=== PATIENT | male | born 1955 | race Caucasian/White ===

== ENCOUNTER 2017-11-02 21:40 | Inpatient (IN) | payer MEDICARE, OTHER ==
--- NOTE | 2017-11-02 22:19 | ED ---
General Adult HPI - General Source: patient, RN notes reviewed, Caregiver Mode of arrival: ambulatory Limitations: no limitations <Alberto Carrillo - Last Filed: 11/02/17 23:22> <Dwaine Downing - Last Filed: 11/02/17 23:40> - General Chief complaint: Extremity Problem,Nontraumatic Stated complaint: swollen ankle/leg Time Seen by Provider: 11/02/17 21:59 - History of Present Illness Initial comments: Patient 62-year-old male significant past medical history for developmental delay, presenting with caregiver who provides the history. He states that he was called by a worker that was going out to his house about some swelling to the right leg. Unsure when this started as a bleed just recently in the last day or 2. Patient denies any pain or symptoms. His of swelling and some redness to the right lower extremity. Patient has low-grade fever here in emergency room. Patient denies any complaints or symptoms. He denies any fever. Denies any nausea, vomiting, diarrhea. Denies any pain. (Alberto Carrillo ) - Related Data Home Medications Medication Instructions Recorded Confirmed Dicyclomine HCl 20 mg PO QID 11/02/17 11/02/17 Ergocalciferol (Vitamin D2) 50,000 unit PO WE 11/02/17 11/02/17 [Vitamin D2] Loperamide [Imodium] 4 mg PO QID 11/02/17 11/02/17 Loratadine 10 mg PO DAILY 11/02/17 11/02/17 Multivitamins, Thera [Multivitamin 1 tab PO DAILY 11/02/17 11/02/17 (formulary)] Phenytoin Sodium Extended 100 mg PO QID 11/02/17 11/02/17 [Dilantin] Pravastatin Sodium [Pravachol] 20 mg PO DAILY 11/02/17 11/02/17 Venlafaxine HCl ER [Effexor Xr] 75 mg PO DAILY 11/02/17 11/02/17 Vitamin E (Dl,Tocopheryl Acet) 800 unit PO DAILY 11/02/17 11/02/17 [Vitamin E] Allergies Allergy/AdvReac Type Severity Reaction Status Date / Time No Known Allergies Allergy Verified 11/02/17 22:20 Review of Systems ROS Other: All systems not noted in ROS Statement are negative. <Alberto Carrillo - Last Filed: 11/02/17 23:22> ROS Other: All systems not noted in ROS Statement are negative. <Dwaine Downing - Last Filed: 11/02/17 23:40> ROS Statement: Those systems with pertinent positive or pertinent negative responses have been documented in the HPI. Past Medical History Past Medical History: Seizure Disorder Additional Past Medical History / Comment(s): developmental delay History of Any Multi-Drug Resistant Organisms: None Reported Past Surgical History: No Surgical Hx Reported Past Psychological History: No Psychological Hx Reported Smoking Status: Never smoker Past Alcohol Use History: None Reported Past Drug Use History: None Reported <Alberto Carrillo - Last Filed: 11/02/17 23:22> General Exam Limitations: no limitations <Alberto Carrillo - Last Filed: 11/02/17 23:22> <Dwaine Downing - Last Filed: 11/02/17 23:40> - General Exam Comments Initial Comments: General: The patient is awake and alert, in no distress, and does not appear acutely ill. Eye: Pupils are equal, round and reactive to light, extra-ocular movements are intact. No nystagmus. There is normal conjunctiva bilaterally. No signs of icterus. Ears, nose, mouth and throat: There are moist mucous membranes and no oral lesions. Neck: The neck is supple, there is no tenderness or JVD. Cardiovascular: There is a regular rate and rhythm. No murmur, rub or gallop is appreciated. Respiratory: Lungs are clear to auscultation, respirations are non-labored, breath sounds are equal. No wheezes, stridor, rales, or rhonchi. Musculoskeletal: Normal ROM, no tenderness. Strength 5/5. Sensation intact. Pulses equal bilaterally 2+. Neurological: A&O x 3. CN II-XII intact, There are no obvious motor or sensory deficits. Coordination appears grossly intact. Speech is normal. Skin: Patient does have redness swelling to the right lower extremity. There is 1+ pitting. There is some lymphangitic streaking coming from the medial aspect of the right foot up the anterior right allison. Psychiatric: Cooperative, appropriate mood & affect, normal judgment. (Alberto Carrillo) Course <Alberto Carrillo - Last Filed: 11/02/17 23:22> <Dwaine Downing - Last Filed: 11/02/17 23:40> Vital Signs 11/02/17 21:53 Temperature 100.2 F H Pulse Rate 85 Respiratory 18 Rate Blood Pressure 137/65 O2 Sat by Pulse 100 Oximetry - Reevaluation(s) Reevaluation #1: 11/02/17 23:39 PA supervision did personally evaluate this patient with a [id number] evaluation and did discuss the findings with the patient's family member who was present. He does demonstrate evidence of cellulitis of the right lower extremity with edema and increased local erythema especially below the knee no lymphangitis. Mild tenderness palpation. Ultrasound was negative for DVT. The exam is consistent with a lower sternal he cellulitis. The patient's living situation will be admitted and placed on IV antibiotics are discussed the case with Dr. Eller. (Dwaine Downing) Medical Decision Making <Alberto Carrillo - Last Filed: 11/02/17 23:22> - Lab Data Result diagrams: 11/02/17 23:15 <Dwaine Downing - Last Filed: 11/02/17 23:40> - Medical Decision Making Patient started on antibiotics of Zosyn, vancomycin here the emergency room. Admitted to the hospital for further IV antibiotics and evaluation. (Alberto Carrillo) - Lab Data Lab Results 11/02/17 11/02/17 Range/Units 23:15 23:15 WBC 6.1 (3.8-10.6) k/uL RBC 4.27 L (4.30-5.90) m/uL Hgb 12.0 L (13.0-17.5) gm/dL Hct 36.2 L (39.0-53.0) % MCV 84.8 (80.0-100.0) fL MCH 28.2 (25.0-35.0) pg MCHC 33.3 (31.0-37.0) g/dL RDW 13.1 (11.5-15.5) % Plt Count 181 (150-450) k/uL Neutrophils % 57 % Lymphocytes % 28 % Monocytes % 9 % Eosinophils % 3 % Basophils % 1 % Neutrophils # 3.5 (1.3-7.7) k/uL Lymphocytes # 1.7 (1.0-4.8) k/uL Monocytes # 0.5 (0-1.0) k/uL Eosinophils # 0.2 (0-0.7) k/uL Basophils # 0.0 (0-0.2) k/uL Plasma Lactic Acid Andrew 0.6 L (0.7-2.0) mmol/L Disposition Time of Disposition: 23:24 <Alberto Carrillo - Last Filed: 11/02/17 23:22> <Dwaine Downing - Last Filed: 11/02/17 23:40> Clinical Impression: Cellulitis Disposition: ADMITTED IP TO THIS HOSP Condition: Stable Referrals: Aixa Eller MD [Primary Care Provider] - 1-2 days
--- NOTE | 2017-11-02 22:49 | US ---
EXAMINATION TYPE: US venous doppler duplex LE RT DATE OF EXAM: 11/02/2017 10:44 PM COMPARISON: NONE CLINICAL HISTORY: Pain. Right leg edema and redness SIDE PERFORMED: Right TECHNIQUE: The lower extremity deep venous system is examined utilizing real time linear array sonog moon with graded compression, doppler sonography and color-flow sonography. VESSELS IMAGED: External Iliac Vein (EIV) Common Femoral Vein Deep Femoral Vein Greater Saphenous Vein * Femoral Vein Popliteal Vein Small Saphenous Vein * Proximal Calf Veins (* superficial vessels) Right Leg: Negative for DVT No evidence of DVT right leg. IMPRESSION: Normal exam. No evidence of deep venous thrombosis in the right leg.
[2017-11-02] MEDS ORDERED: SODIUM CHLORIDE 0.9% 1,000 ML IV STA (23:03)
[2017-11-02] MEDS ORDERED: VANCOMYCIN IV PER PHARMACY 1 EACH MISC MISCELLANE PRN (23:03)
[2017-11-02] MEDS ORDERED: VANCOMYCIN 1,500 MG in SODIUM CHLORIDE 0.9% 250 ML IVPB STA (23:03)
[2017-11-02] MEDS ORDERED: PIPERACILLIN-TAZOBACTAM 3.375 GM in DEXTROSE/WATER 1 50ML.BAG IVPB STA (23:03)
[2017-11-02 23:23] LABS: Basophils % (A) 1 %; Eosinophils # (A) 0.2 k/uL (0-0.7); Eosinophils % (A) 3 %; HCT 36.2 % (39.0-53.0); Lymphocytes # (A) 1.7 k/uL (1.0-4.8); Lymphocytes % (A) 28 %; MCH 28.2 pg (25.0-35.0); MCHC 33.3 g/dL (31.0-37.0); MCV 84.8 fL (80.0-100.0); Monocytes # (A) 0.5 k/uL (0-1.0); Monocytes % (A) 9 %; Neutrophils # (A) 3.5 k/uL (1.3-7.7); Neutrophils % (A) 57 %; Platelet Count 181 k/uL (150-450); RBC 4.27 m/uL (4.30-5.90); RDW 13.1 % (11.5-15.5); WBC 6.1 k/uL (3.8-10.6)
[2017-11-02] MEDS ORDERED: NALOXONE 0.4 MG/ML 1 ML VIAL IV PRN (23:24)
[2017-11-02] MEDS ORDERED: ONDANSETRON 4 MG/2 ML VIAL IVP PRN (23:24)
[2017-11-02] MEDS ORDERED: HYDROmorphone 2 MG/ML 1 ML SYRINGE IVP PRN (23:24)
[2017-11-02] MEDS ORDERED: LORazepam 2 MG/ML INJ IV PRN (23:24)
[2017-11-02 23:54] LABS: ALT 51 U/L (21-72); AST 34 U/L (17-59); Albumin 3.5 g/dL (3.5-5.0); Alkaline Phosphatase 60 U/L (38-126); Anion Gap 9 mmol/L; Blood Urea Nitrogen 21 mg/dL (9-20); Calcium 8.9 mg/dL (8.4-10.2); Carbon Dioxide 30 mmol/L (22-30); Chloride 102 mmol/L (98-107); Glucose 96 mg/dL (74-99); Potassium 3.8 mmol/L (3.5-5.1); Sodium 141 mmol/L (137-145); Total Bilirubin 0.3 mg/dL (0.2-1.3); Total Protein 6.1 g/dL (6.3-8.2)
[2017-11-03 00:59] VITALS: BMI 27.8
[2017-11-03] MEDS ORDERED: VANCOMYCIN 1,500 MG in SODIUM CHLORIDE 0.9% 250 ML IVPB ONE (04:00)
[2017-11-03 07:59] LABS: ALT 48 U/L (21-72); AST 28 U/L (17-59); Alkaline Phosphatase 58 U/L (38-126); Anion Gap 7 mmol/L; Blood Urea Nitrogen 15 mg/dL (9-20); Calcium 8.6 mg/dL (8.4-10.2); Carbon Dioxide 27 mmol/L (22-30); Chloride 107 mmol/L (98-107); Glucose 93 mg/dL (74-99); Potassium 4.2 mmol/L (3.5-5.1); Sodium 141 mmol/L (137-145); Total Bilirubin 0.3 mg/dL (0.2-1.3); Total Protein 5.5 g/dL (6.3-8.2)
[2017-11-03] MEDS ORDERED: PIPERACILLIN-TAZOBACTAM 3.375 GM in DEXTROSE/WATER 1 50ML.BAG IVPB SCH (08:00)
--- NOTE | 2017-11-03 11:22 | P.HPIM ---
History of Present Illness H&P Date: 11/03/17 Chief Complaint: Right lower extremity swelling and erythema Sergey Bowden is a 62-year-old male well-known to my practice with known history of medical debility who was noticed by his caregiver to have swelling and erythema in his right lower extremity extending from his foot up to his knee he was brought in to [facility] emergency room he was evaluated by Dr. Carrillo he underwent Doppler of his right lower extremity which was negative for DVT, he was started on IV antibiotic Zosyn and vancomycin and was admitted to medical floor for further evaluation and treatment, blood culture 1 was done in the emergency room and sent to the lab results are still pending, there is no open ulcer on his right lower extremity. Patient has evidence of onychomycosis in all [address] Green for toenail current every 2 month. His past medical history is significant for developmental delay with moderate mental debility patient requires 24-hour care, history of seizure disorder, history of depression and history of hyperlipidemia, patient has been stable as outpatient. On review of system patient has very low verbal output he is denying any pain or discomfort in his right lower extremity is denying any other symptoms at this time. Past Medical History Past Medical History: Seizure Disorder Additional Past Medical History / Comment(s): developmental delay, cellulitis History of Any Multi-Drug Resistant Organisms: None Reported Past Surgical History: No Surgical Hx Reported Past Anesthesia/Blood Transfusion Reactions: No Reported Reaction Past Psychological History: No Psychological Hx Reported Smoking Status: Never smoker Past Alcohol Use History: None Reported Past Drug Use History: None Reported - Past Family History Father Family Medical History: Unable to Obtain Medications and Allergies Home Medications Medication Instructions Recorded Confirmed Type Dicyclomine HCl 20 mg PO QID 11/02/17 11/02/17 History Ergocalciferol (Vitamin D2) 50,000 unit PO WE 11/02/17 11/02/17 History [Vitamin D2] Loperamide [Imodium] 4 mg PO QID 11/02/17 11/02/17 History Loratadine 10 mg PO DAILY 11/02/17 11/02/17 History Multivitamins, Thera [Multivitamin 1 tab PO DAILY 11/02/17 11/02/17 History (formulary)] Phenytoin Sodium Extended 100 mg PO QID 11/02/17 11/02/17 History [Dilantin] Pravastatin Sodium [Pravachol] 20 mg PO DAILY 11/02/17 11/02/17 History Venlafaxine HCl ER [Effexor Xr] 75 mg PO DAILY 11/02/17 11/02/17 History Vitamin E (Dl,Tocopheryl Acet) 800 unit PO DAILY 11/02/17 11/02/17 History [Vitamin E] Allergies Allergy/AdvReac Type Severity Reaction Status Date / Time No Known Allergies Allergy Verified 11/02/17 22:20 Physical Exam Vitals: Vital Signs Temp Pulse Pulse Resp BP BP Pulse Ox 11/03/17 07:00 98.1 F 75 18 126/71 91 L 11/03/17 01:30 97.9 F 76 16 144/77 93 L 11/02/17 23:51 79 16 121/65 96 11/02/17 21:53 100.2 F H 85 18 137/65 100 Intake and Output 11/02/17 11/03/17 11/03/17 22:59 06:59 14:59 Intake Total 300 Balance 300 Intake: IV 300 Piperacillin-Tazobactam 3 50 .375 gm In Dextrose/Water 1 50ml.bag @ 12.5 mls/hr IVPB Q8HR [facility] Rx#: [id number] Vancomycin 1,500 mg In 250 Sodium Chloride 0.9% 250 ml @ 125 mls/hr IVPB ONCE ONE Rx#:[id number] Other: Voiding Method Toilet # Voids 1 Weight 90.718 kg 90.718 kg In general patient is alert and responsive in no apparent distress HEENT head normocephalic and atraumatic Neck is supple no JVD no goiter no lymphadenopathy Chest exam reveals a few scattered rhonchi no wheezing Cardiac exam reveals regular heart sounds no gallops no murmurs Abdomen is soft nontender no organomegaly with normal bowel sounds Extremity exam reveals 2+ edema in the right lower extremity as compared to the left with erythema extending from the foot to just below the knee there is some induration in the lower pretibial area with mild tenderness with palpation Neurological examination reveals no gross focal deficit Results CBC & Chem 7: 11/02/17 23:15 11/03/17 07:07 Labs: Abnormal Lab Results - Last 24 Hours (Table) 11/02/17 11/02/17 11/02/17 Range/Units 23:15 23:15 23:15 RBC 4.27 L (4.30-5.90) m/uL Hgb 12.0 L (13.0-17.5) gm/dL Hct 36.2 L (39.0-53.0) % BUN 21 H (9-20) mg/dL Plasma Lactic Acid Andrew 0.6 L (0.7-2.0) mmol/L Total Protein 6.1 L (6.3-8.2) g/dL Albumin (3.5-5.0) g/dL 11/03/17 Range/Units 07:07 RBC (4.30-5.90) m/uL Hgb (13.0-17.5) gm/dL Hct (39.0-53.0) % BUN (9-20) mg/dL Plasma Lactic Acid Andrew (0.7-2.0) mmol/L Total Protein 5.5 L (6.3-8.2) g/dL Albumin 3.0 L (3.5-5.0) g/dL Thrombosis Risk Factor Assmnt - Choose All That Apply Any of the Below Risk Factors Present?: Yes Each Factor Represents 1 point: Obesity (BMI >25), Swollen legs (current) Each Risk Factor Represents 2 Points: Age 61-74 years Thrombosis Risk Factor Assessment Total Risk Factor Score: 4 Thrombosis Risk Factor Assessment Level: Moderate Risk Assessment and Plan Plan: #1 right lower extremity cellulitis currently maintained on IV vancomycin and IV Zosyn Will continue was current antibiotic at this time will await blood culture results, we will consult infectious disease for follow-up #2 underlying history of developmental delay currently patient is calm he has a caregiver in his, he might need a sitter if he gets agitated. #3 underlying history of seizure disorder resume Dilantin #4 underlying history of hyperlipidemia resume Pravachol #5 underlying history of depression resume Pravachol #6 for DVT prophylaxis we will use Lovenox for GI prophylaxis we will use Pepcid Will follow in a.m.
[2017-11-03] MEDS: VENLAFAXINE HCL ER 75 MG CAP PO SCH (12:32)
[2017-11-03] MEDS: LORATADINE 10 MG TAB PO SCH (12:32)
[2017-11-03] MEDS: FAMOTIDINE 20 MG TAB PO SCH ×2 (12:32→22:14)
[2017-11-03] MEDS: PRAVASTATIN SODIUM 20 MG TAB PO SCH (12:32)
[2017-11-03] MEDS: ENOXAPARIN 40 MG/0.4 ML SYRINGE SQ SCH (12:32)
[2017-11-03] MEDS: DICYCLOMINE 20 MG TAB PO SCH ×3 (12:33→23:02)
[2017-11-03] MEDS: VITAMIN E (DL,TOCOPHERYL ACET) 400 UNIT CAP PO SCH (12:33)
[2017-11-03] MEDS: MULTIVITAMINS, THERA 1 EACH TAB PO SCH (12:33)
[2017-11-03] MEDS: PHENYTOIN SODIUM EXTENDED 100 MG CAP PO SCH ×3 (12:34→23:02)
[2017-11-03] MEDS ORDERED: LOPERAMIDE 2 MG CAP PO SCH (13:00)
[2017-11-03] MEDS ORDERED: LOPERAMIDE 2 MG CAP PO PRN (13:44)
[2017-11-03] MEDS ORDERED: VANCOMYCIN 1,500 MG in SODIUM CHLORIDE 0.9% 250 ML IVPB SCH (14:00)
[2017-11-03] MEDS ORDERED: HYDROcodone/APAP 5-325MG 1 EACH TAB PO PRN (15:57)
[2017-11-03] MEDS ORDERED: HYDROmorphone 0.5 MG/0.5 ML SYRINGE IVP PRN (16:16)
--- NOTE | 2017-11-03 16:37 | CONS ---
CONSULTATION DATE OF SERVICE: 11/03/2017. REASON FOR CONSULTATION: Right lower extremity cellulitis. HISTORY OF PRESENT ILLNESS: The patient is a 62-year-old male with past medical history significant for developmental delay has been brought into the ER at [facility] last night by the caregiver. Apparently the patient having more swelling and redness in his right leg that has been going on for about a day or 2. The patient is not a very good historian. He did complain of having pain in the right leg area. However, he was unable to quantify his pain any further. When asked specifically if he has any trauma or anything falling episodes, he says no. The patient denies having any fever and chills. Subsequently the patient has been evaluated by the ER physician. He did have lower extremity Dopplers that was negative for DVT. Has been diagnosed with cellulitis. The patient was started on Zosyn and vancomycin and admitted to hospital. Infectious disease was consulted for further recommendation regarding antibiotic therapy. Most of the information has been obtained from prior review of the chart as the patient overall is not a very good historian. REVIEW OF SYSTEMS: Could not be reliably obtained though the positive points have been mentioned in HPI. PAST MEDICAL HISTORY: Significant for developmental delay and seizure disorder. PAST SURGICAL HISTORY: No major surgeries. SOCIAL HISTORY: No smoking, drinking, drug use. FAMILY HISTORY: No pertinent findings were noticed. ALLERGIES: No known drug allergies. MEDICATION: Medications include the patient is currently on Bentyl, Lovenox, vitamin D2, Pepcid, Dilaudid, Imodium, Claritin, Ativan, Theragran, Zofran, Dilantin, Pravachol, Effexor, vancomycin pharmacy to dose and he is on Piptazobactam. EXAMINATION: Blood pressure is 126/71 with a pulse of 75, temperature of 98.1, T-max is 100.2. He is 91% on room air. General description is a middle-aged male lying in bed in no distress. No tachypnea or accessory muscle of respiration use. HEENT examination no pallor or scleral icterus. Oral mucosa membranes dry. Neck trachea central. No thyromegaly. Lungs unlabored breathing, clear to auscultation anteriorly. No wheeze or crackles. Heart S1, S2. Regular rate and rhythm. ABDOMEN: Soft, no tenderness. No guarding or rigidity. Extremities right leg with swelling and redness, slightly warm to touch with no skin breakdown. No induration or fluctuation. No evidence of athlete's foot. Neurological: The patient is awake, alert, oriented x1. Mood and affect normal. LABS: Hemoglobin is 12, white count 6.1, BUN of 15, creatinine 0.73. Electrolytes have been normal. Liver enzymes normal. Blood culture has been obtained which is currently pending. DIAGNOSTIC IMPRESSION AND PLAN: Patient with acute right lower extremity cellulitis with diffuse swelling and redness likely a streptococcal disease with no evidence of any fluctuation or purulence and no history of any antibiotic use recently with no concern for underlying gram- negative infection. PLAN: 1. Discontinue vancomycin and Zosyn. 2. Will start the patient on cefazolin 2 g q.8 hours. 3. Yusef the area on the right leg. 4. We will apply Kris wrap from just above to below the knee to keep some of the swelling down. 5. We will follow up on the clinical condition and culture to further adjust medication if needed. Thank you for this consultation. Will follow the patient with you. MMODL / IJN: [id number] / MANUEL
[2017-11-03] MEDS: ceFAZolin IN SWFI 2 GM/20 ML SYRINGE IVP SCH (17:09)
[2017-11-03 21:25] VITALS: RESP 16
[2017-11-04] MEDS: ceFAZolin IN SWFI 2 GM/20 ML SYRINGE IVP SCH ×4 (00:02→23:58)
[2017-11-04 07:32] LABS: Basophils % (A) 1 %; Eosinophils # (A) 0.2 k/uL (0-0.7); Eosinophils % (A) 3 %; HCT 35.2 % (39.0-53.0); HGB 11.2 gm/dL (13.0-17.5); Lymphocytes # (A) 1.4 k/uL (1.0-4.8); Lymphocytes % (A) 24 %; MCH 27.5 pg (25.0-35.0); MCHC 31.8 g/dL (31.0-37.0); MCV 86.4 fL (80.0-100.0); Mean Platelet Volume 9.5; Monocytes # (A) 0.4 k/uL (0-1.0); Monocytes % (A) 7 %; Neutrophils # (A) 3.7 k/uL (1.3-7.7); Neutrophils % (A) 63 %; Platelet Count 206 k/uL (150-450); RBC 4.07 m/uL (4.30-5.90); RDW 14.1 % (11.5-15.5); WBC 5.8 k/uL (3.8-10.6)
[2017-11-04 07:45] LABS: ALT 43 U/L (21-72); AST 23 U/L (17-59); Albumin 3.1 g/dL (3.5-5.0); Alkaline Phosphatase 58 U/L (38-126); Anion Gap 9 mmol/L; Blood Urea Nitrogen 9 mg/dL (9-20); Carbon Dioxide 27 mmol/L (22-30); Chloride 108 mmol/L (98-107); Glucose 94 mg/dL (74-99); Potassium 3.9 mmol/L (3.5-5.1); Sodium 144 mmol/L (137-145); Total Bilirubin 0.3 mg/dL (0.2-1.3); Total Protein 5.7 g/dL (6.3-8.2)
[2017-11-04] MEDS: FAMOTIDINE 20 MG TAB PO SCH ×2 (08:27→21:00)
[2017-11-04] MEDS: DICYCLOMINE 20 MG TAB PO SCH ×4 (08:27→21:00)
[2017-11-04] MEDS: ENOXAPARIN 40 MG/0.4 ML SYRINGE SQ SCH (08:27)
[2017-11-04] MEDS: VENLAFAXINE HCL ER 75 MG CAP PO SCH (08:28)
[2017-11-04] MEDS: PRAVASTATIN SODIUM 20 MG TAB PO SCH (08:28)
[2017-11-04] MEDS: PHENYTOIN SODIUM EXTENDED 100 MG CAP PO SCH ×4 (08:28→21:00)
[2017-11-04] MEDS: LORATADINE 10 MG TAB PO SCH (08:28)
[2017-11-04] MEDS: VITAMIN E (DL,TOCOPHERYL ACET) 400 UNIT CAP PO SCH (12:41)
[2017-11-04] MEDS: MULTIVITAMINS, THERA 1 EACH TAB PO SCH (12:41)
--- NOTE | 2017-11-04 12:57 | P.PN ---
Subjective Progress Note Date: 11/04/17 Sergey Bowden is a 62-year-old male well-known to my practice with known history of medical debility who was noticed by his caregiver to have swelling and erythema in his right lower extremity extending from his foot up to his knee he was brought in to [facility] emergency room he was evaluated by Dr. Carrillo he underwent Doppler of his right lower extremity which was negative for DVT, he was started on IV antibiotic Zosyn and vancomycin and was admitted to medical floor for further evaluation and treatment, blood culture 1 was done in the emergency room and sent to the lab results are still pending, there is no open ulcer on his right lower extremity. Patient has evidence of onychomycosis in all [address] Green for toenail current every 2 month. On 11/04/2017 patient is alert responsive in no apparent distress right lower extremity is wrapped with Kris wrap, this was an wrapped in his leg examined redness has been receding significantly from the marked line patient denies any pain or discomfort in his leg there is no fever or chills. Objective - Vital Signs Vital signs: Vital Signs Temp 98.2 F 11/04/17 07:00 Pulse 71 11/04/17 07:00 Resp 16 11/04/17 07:00 BP 119/64 11/04/17 07:00 Pulse Ox 93 L 11/04/17 07:00 Intake & Output 11/03/17 11/04/17 11/04/17 18:59 06:59 18:59 Intake Total 50 Balance 50 Intake: IV 50 Piperacillin-Tazobactam 3 50 .375 gm In Dextrose/Water 1 50ml.bag @ 12.5 mls/hr IVPB Q8HR [facility] Rx#: [id number] Other: Voiding Method Toilet Toilet Toilet # Voids 2 1 # Bowel Movements 1 - Exam In general patient is alert and responsive in no apparent distress HEENT head normocephalic and atraumatic Neck is supple no JVD no goiter no lymphadenopathy Chest exam reveals a few scattered rhonchi no wheezing Cardiac exam reveals regular heart sounds no gallops no murmurs Abdomen is soft nontender no organomegaly with normal bowel sounds Extremity exam reveals 2+ edema in the right lower extremity as compared to the left with erythema extending from the foot to just below the knee there is some induration in the lower pretibial area with mild tenderness with palpation Neurological examination reveals no gross focal deficit - Labs CBC & Chem 7: 11/04/17 06:58 11/04/17 06:58 Labs: Abnormal Lab Results - Last 24 Hours (Table) 11/04/17 11/04/17 Range/Units 06:58 06:58 RBC 4.07 L (4.30-5.90) m/uL Hgb 11.2 L (13.0-17.5) gm/dL Hct 35.2 L (39.0-53.0) % Chloride 108 H (98-107) mmol/L Creatinine 0.60 L (0.66-1.25) mg/dL Total Protein 5.7 L (6.3-8.2) g/dL Albumin 3.1 L (3.5-5.0) g/dL Microbiology - Last 24 Hours (Table) 11/02/17 23:15 Blood Culture - Preliminary Blood No Growth after 24 hours Assessment and Plan Plan: #1 right lower extremity cellulitis currently maintained on IV vancomycin and IV Zosyn IV antibiotic switched to cefazolin 2 g IV every 8 hours per infectious disease recommendation patient is improving culture are still pending #2 underlying history of developmental delay currently patient is calm he has a caregiver in his, he might need a sitter if he gets agitated. #3 underlying history of seizure disorder resume Dilantin #4 underlying history of hyperlipidemia resume Pravachol #5 underlying history of depression resume Pravachol #6 for DVT prophylaxis we will use Lovenox for GI prophylaxis we will use Pepcid Will follow in a.m.
[2017-11-05 07:23] LABS: Basophils % (A) 1 %; Eosinophils # (A) 0.2 k/uL (0-0.7); Eosinophils % (A) 4 %; HCT 37.2 % (39.0-53.0); HGB 11.7 gm/dL (13.0-17.5); Lymphocytes # (A) 1.3 k/uL (1.0-4.8); Lymphocytes % (A) 26 %; MCH 27.5 pg (25.0-35.0); MCHC 31.5 g/dL (31.0-37.0); MCV 87.1 fL (80.0-100.0); Mean Platelet Volume 9.1; Monocytes # (A) 0.3 k/uL (0-1.0); Monocytes % (A) 7 %; Neutrophils % (A) 61 %; Platelet Count 244 k/uL (150-450); RBC 4.28 m/uL (4.30-5.90); RDW 14.5 % (11.5-15.5)
[2017-11-05 07:36] LABS: ALT 41 U/L (21-72); AST 31 U/L (17-59); Albumin 3.4 g/dL (3.5-5.0); Alkaline Phosphatase 64 U/L (38-126); Anion Gap 9 mmol/L; Blood Urea Nitrogen 11 mg/dL (9-20); Calcium 9.3 mg/dL (8.4-10.2); Carbon Dioxide 29 mmol/L (22-30); Chloride 106 mmol/L (98-107); Glucose 89 mg/dL (74-99); Potassium 4.1 mmol/L (3.5-5.1); Sodium 144 mmol/L (137-145); Total Bilirubin 0.2 mg/dL (0.2-1.3)
[2017-11-05] MEDS: LORATADINE 10 MG TAB PO SCH (08:48)
[2017-11-05] MEDS: PRAVASTATIN SODIUM 20 MG TAB PO SCH (08:48)
[2017-11-05] MEDS: ENOXAPARIN 40 MG/0.4 ML SYRINGE SQ SCH (08:48)
[2017-11-05] MEDS: VENLAFAXINE HCL ER 75 MG CAP PO SCH (08:48)
[2017-11-05] MEDS: ceFAZolin IN SWFI 2 GM/20 ML SYRINGE IVP SCH ×2 (08:48→17:08)
[2017-11-05] MEDS: PHENYTOIN SODIUM EXTENDED 100 MG CAP PO SCH ×4 (08:48→21:13)
[2017-11-05] MEDS: FAMOTIDINE 20 MG TAB PO SCH ×2 (08:48→20:20)
[2017-11-05] MEDS: DICYCLOMINE 20 MG TAB PO SCH ×4 (08:48→21:13)
[2017-11-05] MEDS: VITAMIN E (DL,TOCOPHERYL ACET) 400 UNIT CAP PO SCH (12:11)
[2017-11-05] MEDS: MULTIVITAMINS, THERA 1 EACH TAB PO SCH (12:11)
--- NOTE | 2017-11-05 13:56 | P.PN ---
Subjective Progress Note Date: 11/05/17 Sergey Bowden is a 62-year-old male well-known to my practice with known history of medical debility who was noticed by his caregiver to have swelling and erythema in his right lower extremity extending from his foot up to his knee he was brought in to [facility] emergency room he was evaluated by Dr. Carrillo he underwent Doppler of his right lower extremity which was negative for DVT, he was started on IV antibiotic Zosyn and vancomycin and was admitted to medical floor for further evaluation and treatment, blood culture 1 was done in the emergency room and sent to the lab results are still pending, there is no open ulcer on his right lower extremity. Patient has evidence of onychomycosis in all [address] Green for toenail current every 2 month. On 11/04/2017 patient is alert responsive in no apparent distress right lower extremity is wrapped with Kris wrap, this was an wrapped in his leg examined redness has been receding significantly from the marked line patient denies any pain or discomfort in his leg there is no fever or chills. On 11/05/2017 agent is alert and responsive denies any pain or discomfort right lower extremity was examined there is improving erythema and tenderness and swelling. Objective - Vital Signs Vital signs: Vital Signs Temp 98.3 F 11/05/17 07:00 Pulse 73 11/05/17 07:00 Resp 16 11/05/17 07:00 BP 107/56 11/05/17 07:00 Pulse Ox 94 L 11/05/17 07:00 Intake & Output 11/04/17 11/05/17 11/05/17 18:59 06:59 18:59 Intake Total 50 Balance 50 Intake: Intake, IV Titration 50 Amount ceFAZolin 2 gm In Sodium 50 Chloride 0.9% 50 ml @ 100 mls/hr IVPB Q8HR [facility] Rx# :[id number] Other: Voiding Method Toilet Toilet Toilet # Voids 1 - Exam In general patient is alert and responsive in no apparent distress HEENT head normocephalic and atraumatic Neck is supple no JVD no goiter no lymphadenopathy Chest exam reveals a few scattered rhonchi no wheezing Cardiac exam reveals regular heart sounds no gallops no murmurs Abdomen is soft nontender no organomegaly with normal bowel sounds Extremity exam reveals 2+ edema in the right lower extremity as compared to the left with erythema extending from the foot to just below the knee there is some induration in the lower pretibial area with mild tenderness with palpation Neurological examination reveals no gross focal deficit - Labs CBC & Chem 7: 11/05/17 06:24 11/05/17 06:24 Labs: Abnormal Lab Results - Last 24 Hours (Table) 11/05/17 11/05/17 Range/Units 06:24 06:24 RBC 4.28 L (4.30-5.90) m/uL Hgb 11.7 L (13.0-17.5) gm/dL Hct 37.2 L (39.0-53.0) % Total Protein 6.0 L (6.3-8.2) g/dL Albumin 3.4 L (3.5-5.0) g/dL Microbiology - Last 24 Hours (Table) 11/02/17 23:15 Blood Culture - Preliminary Blood No Growth after 48 hours Assessment and Plan Plan: #1 right lower extremity cellulitis currently maintained on IV vancomycin and IV Zosyn IV antibiotic switched to cefazolin 2 g IV every 8 hours per infectious disease recommendation patient is improving culture are still pending #2 underlying history of developmental delay currently patient is calm he has a caregiver in his, he might need a sitter if he gets agitated. #3 underlying history of seizure disorder resume Dilantin #4 underlying history of hyperlipidemia resume Pravachol #5 underlying history of depression resume Pravachol #6 for DVT prophylaxis we will use Lovenox for GI prophylaxis we will use Pepcid Will follow in a.m.
[2017-11-06] MEDS: ceFAZolin IN SWFI 2 GM/20 ML SYRINGE IVP SCH ×2 (00:18→08:23)
--- NOTE | 2017-11-06 05:22 | PN ---
PROGRESS NOTE DATE OF SERVICE: 11/05/2017 REASON FOR FOLLOWUP: Right lower extremity cellulitis. INTERVAL HISTORY: The patient is afebrile. Has been breathing comfortably. Pain and swelling to the right leg has improved. Denies having any chest pain or shortness of breath or cough. PHYSICAL EXAMINATION: On examination, blood pressure 131/70 with a pulse of 68, temperature of 98. He is 96% in room air. General description is a middle aged male up in the chair in no distress. RESPIRATORY SYSTEM: Unlabored breathing, clear to auscultation anteriorly. HEART: S1, S2. Regular rate and rhythm. ABDOMEN: Soft, no tenderness. Right leg overall swelling and redness has improved. LABS: Hemoglobin is 11.7, white count 5.0. BUN of 11, creatinine 0.66. DIAGNOSTIC IMPRESSION AND PLAN: Patient with right lower extremity cellulitis with diffuse swelling and redness likely streptococcal disease. The patient is to continue on cefazolin and if he continues to improve to finish therapy with oral Keflex. Continue supportive care. MMODL / IJN: [id number] /
[2017-11-06 08:22] VITALS: BP 115/55; PULSE 71; TEMP 97.3
[2017-11-06] MEDS: PRAVASTATIN SODIUM 20 MG TAB PO SCH (08:23)
[2017-11-06] MEDS: ENOXAPARIN 40 MG/0.4 ML SYRINGE SQ SCH (08:23)
[2017-11-06] MEDS: VENLAFAXINE HCL ER 75 MG CAP PO SCH (08:23)
[2017-11-06] MEDS: LORATADINE 10 MG TAB PO SCH (08:23)
[2017-11-06] MEDS: PHENYTOIN SODIUM EXTENDED 100 MG CAP PO SCH ×2 (08:23→13:11)
[2017-11-06] MEDS: DICYCLOMINE 20 MG TAB PO SCH ×2 (08:23→13:11)
[2017-11-06] MEDS: FAMOTIDINE 20 MG TAB PO SCH (08:23)
--- NOTE | 2017-11-06 11:53 | PN ---
PROGRESS NOTE DATE OF SERVICE: 11/06/2017. REASON FOR FOLLOWUP: Right lower extremity cellulitis. INTERVAL HISTORY: The patient is afebrile, has been breathing comfortably. Denies having any chest pain or cough. Overall swelling in the right leg has improved. No nausea, vomiting. No diarrhea. EXAMINATION: Blood pressure is 115/55 with a pulse of 71, temperature 97.3, he is 91% on room air. GENERAL DESCRIPTION: A middle-aged male, lying in bed in no distress. RESPIRATORY: Unlabored breathing. Clear to auscultation anteriorly. HEART: S1, S2. Regular rate and rhythm. ABDOMEN: Soft, no tenderness. EXTREMITIES: Right leg swelling persists. The redness is improved. LABS: White count 5.0. Blood culture has been negative. DIAGNOSTIC IMPRESSION AND PLAN: Patient with right lower extremity cellulitis with diffuse cellulitis likely streptococcal disease. Plan is to finish therapy with oral Keflex 500 mg t.i.d. for about 7 to 10 days. Kris wrap to keep the swelling down. Outpatient followup. Plan of care discussed with the RN as well as the nurse practitioner. MMODL / IJN: [id number] /
[2017-11-06] MEDS: VITAMIN E (DL,TOCOPHERYL ACET) 400 UNIT CAP PO SCH (13:11)
[2017-11-06] MEDS: MULTIVITAMINS, THERA 1 EACH TAB PO SCH (13:11)
--- NOTE | 2017-11-06 13:11 | P.DS ---
Providers Date of admission: 11/02/17 23:39 Expected date of discharge: 11/06/17 Attending physician: Aixa Eller Consults: 11/03/17 11:24 Consult Physician Routine Consulting Provider: Kayla Castellanos Consult Reason/Comments: lower extremity cellulitis Do you want consulting provider notified?: Yes Primary care physician: Aixa Eller [facility] Course: Discharge diagnosis #1 right lower extremity cellulitis currently improved with IV Kefzol. Seen by infectious disease. The recommending Keflex 500 mg 3 times a day for 10 more days #2 underlying history of developmental delay currently patient is calm he has a caregiver in his, he might need a sitter if he gets agitated. #3 underlying history of seizure disorder resume Dilantin #4 underlying history of hyperlipidemia resume Pravachol #5 underlying history of depression resume Pravachol Hospital course Sergey Bowden is a 62-year-old male well-known to my practice with known history of medical debility who was noticed by his caregiver to have swelling and erythema in his right lower extremity extending from his foot up to his knee he was brought in to [facility] emergency room he was evaluated by Dr. Carrillo he underwent Doppler of his right lower extremity which was negative for DVT, he was started on IV antibiotic Zosyn and vancomycin and was admitted to medical floor for further evaluation and treatment, blood culture 1 was done in the emergency room and sent to the lab results are still pending, there is no open ulcer on his right lower extremity. Patient has evidence of onychomycosis in all [address] Green for toenail current every 2 month. His past medical history is significant for developmental delay with moderate mental debility patient requires 24-hour care, history of seizure disorder, history of depression and history of hyperlipidemia, patient has been stable as outpatient. Patient treated with IV Kefzol for right lower extremity cellulitis. Patient seen evaluated by infectious disease. Blood culture negative. Doppler of the right lower extremity negative for DVT. Patient's symptoms had improved. He has been cleared by infectious disease for discharge with 500 mg 3 times a day for 10 days. I performed an examination of the patient and discussed their management with the physician Environmental Service Aide. I have reviewed the Physician Environmental Service Aide's notes and agree with the documented findings and plan of care Patient Condition at Discharge: Stable Plan - Discharge Summary New Discharge Prescriptions: New Cephalexin [Keflex] 500 mg PO TID #30 cap Continue Vitamin E (Dl,Tocopheryl Acet) [Vitamin E] 800 unit PO DAILY Multivitamins, Thera [Multivitamin (formulary)] 1 tab PO DAILY Loratadine 10 mg PO DAILY Ergocalciferol (Vitamin D2) [Vitamin D2] 50,000 unit PO WE Venlafaxine HCl ER [Effexor XR] 75 mg PO DAILY Pravastatin Sodium [Pravachol] 20 mg PO DAILY Phenytoin Sodium Extended [Dilantin] 100 mg PO QID Loperamide [Imodium] 4 mg PO QID Dicyclomine HCl 20 mg PO QID Discharge Medication List Dicyclomine HCl 20 mg PO QID 11/02/17 [History] Ergocalciferol (Vitamin D2) [Vitamin D2] 50,000 unit PO WE 11/02/17 [History] Loperamide [Imodium] 4 mg PO QID 11/02/17 [History] Loratadine 10 mg PO DAILY 11/02/17 [History] Multivitamins, Thera [Multivitamin (formulary)] 1 tab PO DAILY 11/02/17 [History ] Phenytoin Sodium Extended [Dilantin] 100 mg PO QID 11/02/17 [History] Pravastatin Sodium [Pravachol] 20 mg PO DAILY 11/02/17 [History] Venlafaxine HCl ER [Effexor XR] 75 mg PO DAILY 11/02/17 [History] Vitamin E (Dl,Tocopheryl Acet) [Vitamin E] 800 unit PO DAILY 11/02/17 [History] Cephalexin [Keflex] 500 mg PO TID #30 cap 11/06/17 [Rx] Follow up Appointment(s)/Referral(s): Kayla Castellanos MD [STAFF PHYSICIAN] - 1 Week Aixa Eller MD [Primary Care Provider] - 1 Week Activity/Diet/Wound Care/Special Instructions: Diet: Heart Healthy Activity: as tolerated Discharge Disposition: HOME SELF-CARE
[2017-11-06] MEDS ORDERED: CEPHALEXIN 500 MG CAP PO SCH (16:00)
[2017-11-08] MEDS ORDERED: ERGOCALCIFEROL 50,000 UNIT CAP PO SCH (12:00)
== END 2017-11-06 13:40 | disposition home or self-care (01) | DRG 603 ==
LOC: EC 21:40 → 5MS5E 23:39
PROVIDERS: ADMIT Internal Medicine; ATTEND Internal Medicine
DX: L03.115 Cellulitis of right lower limb (principal); B35.1 Tinea unguium; E78.5 Hyperlipidemia, unspecified; G40.909 Epilepsy, unspecified, not intractable, without status epilepticus; F32.9 Major depressive disorder, single episode, unspecified; R62.50 Unspecified lack of expected normal physiological development in childhood; Z79.899 Other long term (current) drug therapy
CPT/HCPCS: 36415; 80053; 83605; 85025; 87040; 96365; 96375; 99285

== ENCOUNTER 2020-10-01 12:35 | Emergency (ER) | payer MEDICARE, OTHER ==
[2020-10-01 12:42] VITALS: RESP 18; TEMP 97.7
[2020-10-01 13:15] LABS: Basophils # (A) 0.1 k/uL (0-0.2); Basophils % (A) 2 %; Eosinophils # (A) 0.1 k/uL (0-0.7); Eosinophils % (A) 2 %; HCT 38.5 % (39.0-53.0); HGB 13.3 gm/dL (13.0-17.5); Lymphocytes # (A) 1.6 k/uL (1.0-4.8); Lymphocytes % (A) 25 %; MCH 29.8 pg (25.0-35.0); MCHC 34.5 g/dL (31.0-37.0); MCV 86.4 fL (80.0-100.0); Mean Platelet Volume 9.4; Monocytes # (A) 0.7 k/uL (0-1.0); Monocytes % (A) 11 %; Neutrophils # (A) 3.8 k/uL (1.3-7.7); Neutrophils % (A) 58 %; Platelet Count 127 k/uL (150-450); RBC 4.46 m/uL (4.30-5.90); RDW 13.1 % (11.5-15.5); WBC 6.6 k/uL (3.8-10.6)
[2020-10-01 13:23] LABS: INR 1.2 (<1.2); Partial Thromboplastin Time 26.9 sec (22.0-30.0)
[2020-10-01 13:27] LABS: ALT 15 U/L (4-49); AST 21 U/L (17-59); African American GFR (CKD) >90 (>60 ml/min/1.73 sqM); Alkaline Phosphatase 74 U/L (38-126); Anion Gap 6 mmol/L; Blood Urea Nitrogen 16 mg/dL (9-20); Calcium 9.2 mg/dL (8.4-10.2); Carbon Dioxide 30 mmol/L (22-30); Chloride 103 mmol/L (98-107); Glucose 87 mg/dL (74-99); Non-African American GFR(CKD) >90 (>60 ml/min/1.73 sqM); Sodium 139 mmol/L (137-145); Total Bilirubin 0.5 mg/dL (0.2-1.3); Total Protein 6.9 g/dL (6.3-8.2)
--- NOTE | 2020-10-01 13:40 | ED ---
Lower Extremity Injury HPI - General Chief Complaint: Extremity Injury, Lower Stated Complaint: Poss blood clot,Right leg Time Seen by Provider: 10/01/20 12:35 Source: patient Mode of arrival: ambulatory Limitations: no limitations - History of Present Illness Initial Comments: Patient is a 65-year-old male with past medical history of developmental delay, recurrent cellulitis who presents emergency Department with reported abnormal ultrasound result. Caregiver is at bedside and provides a history. States that caretakers this morning noted the patient had a swollen, warm right lower extremity. They called Dr. Eller who recommended he come into the ultrasound department. Ultrasound was performed and demonstrated a clot and therefore they referred to the ER for further treatment. The patient denies any chest pain or shortness of breath. No recent falls with head trauma. Denies any headache or visual changes. Has not been on blood thinners in the past. No history of kidney disease. No history of hemorrhagic CVA, recent surgeries or rectal bleeding. No contraindications to anticoagulation. Denies previous history of bleeding disorders. No other alleviating, precipitating or modifying factors - Related Data Home Medications Medication Instructions Recorded Confirmed Dicyclomine HCl 20 mg PO QID 11/02/17 10/03/20 Ergocalciferol (Vitamin D2) 50,000 unit PO SA 11/02/17 10/03/20 [Vitamin D2] Loperamide [Imodium] 4 mg PO QID 11/02/17 10/03/20 Loratadine 10 mg PO DAILY 11/02/17 10/03/20 Phenytoin Sodium Extended 100 mg PO TID 11/02/17 10/03/20 [Dilantin] Pravastatin Sodium [Pravachol] 20 mg PO HS 11/02/17 10/03/20 Venlafaxine HCl ER [Effexor XR] 75 mg PO HS 11/02/17 10/03/20 Apixaban [Eliquis] See Taper PO DIRECTED 10/03/20 10/03/20 Allergies Allergy/AdvReac Type Severity Reaction Status Date / Time No Known Allergies Allergy Verified 10/03/20 10:28 Review of Systems ROS Statement: Those systems with pertinent positive or pertinent negative responses have been documented in the HPI. ROS Other: All systems not noted in ROS Statement are negative. Past Medical History Past Medical History: Seizure Disorder Additional Past Medical History / Comment(s): developmental delay, cellulitis History of Any Multi-Drug Resistant Organisms: None Reported Past Surgical History: No Surgical Hx Reported Past Anesthesia/Blood Transfusion Reactions: No Reported Reaction Past Psychological History: No Psychological Hx Reported Smoking Status: Never smoker Past Alcohol Use History: None Reported Past Drug Use History: None Reported - Past Family History Father Family Medical History: Unable to Obtain General Exam Limitations: no limitations General appearance: alert, in no apparent distress Head exam: Present: atraumatic Respiratory exam: Present: normal lung sounds bilaterally. Absent: respiratory distress, wheezes, rales, rhonchi, stridor Cardiovascular Exam: Present: normal rhythm, bradycardia Extremities exam: Present: pedal edema (4+ rle) Neurological exam: Present: alert Psychiatric exam: Present: flat affect Course Vital Signs 10/01/20 10/01/20 12:36 14:39 Temperature 97.7 F Pulse Rate 40 L 62 Respiratory 18 18 Rate Blood Pressure 154/77 140/68 O2 Sat by Pulse 98 95 Oximetry - Reevaluation(s) Reevaluation #1: 10/01/20 13:56 Dr. Eller returned my call - requesting case management to determine whether rx is covered Medical Decision Making - Medical Decision Making On arrival patient is placed into room 11. Report is reviewed from ultrasound. Demonstrates right lower extremity DVT from proximal calf extending into the distal femoral vein. Laboratory studies are conducted. Platelets are 127. INR 1.2. Creatinine 0.74. Did recommend anticoagulation with Eliquis. Called and discussed this with Dr. Eller who agreed. [facility] Prescription was sent to the pharmacy. Instructed to start taking the medications tomorrow. Follow-up with Dr. Eller in office for further management. Return to the emergency room for any new or worsening symptoms she was in agreement with this plan he was discharged home in stable condition - Lab Data Result diagrams: 10/01/20 12:56 10/01/20 12:56 Lab Results 10/01/20 10/01/20 10/01/20 Range/Units 12:56 12:56 12:56 WBC 6.6 (3.8-10.6) k/uL RBC 4.46 (4.30-5.90) m/uL Hgb 13.3 (13.0-17.5) gm/dL Hct 38.5 L (39.0-53.0) % MCV 86.4 (80.0-100.0) fL MCH 29.8 (25.0-35.0) pg MCHC 34.5 (31.0-37.0) g/dL RDW 13.1 (11.5-15.5) % Plt Count 127 L (150-450) k/uL MPV 9.4 Neutrophils % 58 % Lymphocytes % 25 % Monocytes % 11 % Eosinophils % 2 % Basophils % 2 % Neutrophils # 3.8 (1.3-7.7) k/uL Lymphocytes # 1.6 (1.0-4.8) k/uL Monocytes # 0.7 (0-1.0) k/uL Eosinophils # 0.1 (0-0.7) k/uL Basophils # 0.1 (0-0.2) k/uL PT 12.0 (9.0-12.0) sec INR 1.2 H (<1.2) APTT 26.9 (22.0-30.0) sec Sodium 139 (137-145) mmol/L Potassium 4.0 (3.5-5.1) mmol/L Chloride 103 (98-107) mmol/L Carbon Dioxide 30 (22-30) mmol/L Anion Gap 6 mmol/L BUN 16 (9-20) mg/dL Creatinine 0.74 (0.66-1.25) mg/dL Est GFR (CKD-EPI)AfAm >90 (>60 ml/min/1.73 sqM) Est GFR (CKD-EPI)NonAf >90 (>60 ml/min/1.73 sqM) Glucose 87 (74-99) mg/dL Calcium 9.2 (8.4-10.2) mg/dL Total Bilirubin 0.5 (0.2-1.3) mg/dL AST 21 (17-59) U/L ALT 15 (4-49) U/L Alkaline Phosphatase 74 (38-126) U/L Total Protein 6.9 (6.3-8.2) g/dL Albumin 4.0 (3.5-5.0) g/dL Disposition Clinical Impression: Acute DVT (deep venous thrombosis) Disposition: HOME SELF-CARE Condition: Stable Instructions (If sedation given, give patient instructions): Deep Vein Thrombosis (ED) Additional Instructions: Please follow-up with Dr. Eller in regards to your symptoms and management of your new blood thinner. Return to the emergency room for any new or worsening symptoms Is patient prescribed a controlled substance at d/c from ED?: No Referrals: Aixa Eller MD [Primary Care Provider] - 1-2 days Time of Disposition: 14:22
[2020-10-01 14:43] VITALS: BP 140/68; PULSE 62
[2020-10-01] MEDS ORDERED: APIXABAN 5 MG TAB PO STA (15:12)
== END 2020-10-01 15:20 ==
LOC: EC 12:35
DX: I82.401 Acute embolism and thrombosis of unspecified deep veins of right lower extremity (principal); G40.909 Epilepsy, unspecified, not intractable, without status epilepticus; Z79.899 Other long term (current) drug therapy
CPT/HCPCS: 36415; 80053; 85025; 85610; 85730; 99283

== ENCOUNTER → 2020-10-01 | Outpatient (CLI) | payer MEDICARE, OTHER ==
--- NOTE | 2020-10-01 12:34 | US ---
EXAMINATION TYPE: US venous doppler duplex LE RT DATE OF EXAM: 10/01/2020 12:25 PM COMPARISON: NONE CLINICAL HISTORY: R22.41 swelling of right lower johns. SIDE PERFORMED: TECHNIQUE: The lower extremity deep venous system is examined utilizing real time linear array sonog moon with graded compression, doppler sonography and color-flow sonography. VESSELS IMAGED: Common Femoral Vein Deep Femoral Vein Greater Saphenous Vein * Femoral Vein Popliteal Vein Small Saphenous Vein * Proximal Calf Veins (* superficial vessels) Right Leg: Positive for DVT starting at distal femoral vein and extending through proximal calf vein s. IMPRESSION: 1. Right lower extremity deep venous thrombosis from the proximal calf extending into the distal femo ral vein A Red level critical message alert has been initiated for Aixa Eller MD via the [employer] on 10/01/2020 12:31 PM. This message alert has been sent to iAxa Eller MD v caryl the preferences provided by the clinician for the receipt of Radiology Critical Findings. Message ID [id number].
== END | disposition home or self-care (01) ==
LOC: RADUSWWP 11:45
PROVIDERS: ATTEND Internal Medicine
DX: I82.411 Acute embolism and thrombosis of right femoral vein (principal); I82.4Z1 Acute embolism and thrombosis of unspecified deep veins of right distal lower extremity; Z88.1 Allergy status to other antibiotic agents

== ENCOUNTER 2020-10-03 09:46 | Emergency (ER) | payer MEDICARE, OTHER ==
[2020-10-03 09:52] VITALS: TEMP 97.8
--- NOTE | 2020-10-03 10:08 | ED ---
General Adult HPI - General Chief complaint: Extremity Injury, Lower Stated complaint: R leg is swollen. Blood clot dx on .revisi Time Seen by Provider: 10/03/20 09:55 Source: patient, family, RN notes reviewed Mode of arrival: wheelchair Limitations: no limitations - History of Present Illness Initial comments: Patient is a pleasant 65-year-old male presenting to the emergency Department with complaints of right leg discomfort. Patient was in the emergency department 2 days ago and started on Eliquis secondary to blood clot. Patient has taken 2 doses yesterday and one this morning. Patient did have some redness of his legs and increased discomfort earlier however this has arty improved. Patient states discomfort is mild at this time. Redness has seemed to gone away. Patient still has some swelling. No chest pain or dyspnea. - Related Data Home Medications Medication Instructions Recorded Confirmed Dicyclomine HCl 20 mg PO QID 11/02/17 10/03/20 Ergocalciferol (Vitamin D2) 50,000 unit PO SA 11/02/17 10/03/20 [Vitamin D2] Loperamide [Imodium] 4 mg PO QID 11/02/17 10/03/20 Loratadine 10 mg PO DAILY 11/02/17 10/03/20 Phenytoin Sodium Extended 100 mg PO TID 11/02/17 10/03/20 [Dilantin] Pravastatin Sodium [Pravachol] 20 mg PO HS 11/02/17 10/03/20 Venlafaxine HCl ER [Effexor XR] 75 mg PO HS 11/02/17 10/03/20 Apixaban [Eliquis] See Taper PO DIRECTED 10/03/20 10/03/20 Allergies Allergy/AdvReac Type Severity Reaction Status Date / Time No Known Allergies Allergy Verified 10/03/20 10:28 Review of Systems ROS Statement: Those systems with pertinent positive or pertinent negative responses have been documented in the HPI. ROS Other: All systems not noted in ROS Statement are negative. Constitutional: Denies: fever Eyes: Denies: eye pain ENT: Denies: ear pain Respiratory: Denies: cough, dyspnea Cardiovascular: Denies: chest pain Endocrine: Denies: fatigue Gastrointestinal: Denies: abdominal pain Genitourinary: Denies: urgency Musculoskeletal: Denies: back pain Skin: Denies: rash Neurological: Denies: weakness Past Medical History Past Medical History: Seizure Disorder Additional Past Medical History / Comment(s): developmental delay, cellulitis History of Any Multi-Drug Resistant Organisms: None Reported Past Surgical History: No Surgical Hx Reported Past Anesthesia/Blood Transfusion Reactions: No Reported Reaction Past Psychological History: No Psychological Hx Reported Smoking Status: Never smoker Past Alcohol Use History: None Reported Past Drug Use History: None Reported - Past Family History Father Family Medical History: Unable to Obtain General Exam Limitations: no limitations General appearance: alert, in no apparent distress Head exam: Present: normocephalic Eye exam: Present: normal appearance Neck exam: Present: normal inspection Respiratory exam: Present: normal lung sounds bilaterally Cardiovascular Exam: Present: regular rate, normal rhythm Expanded Peripheral pulses: 2+: Dorsalis Pedis (R), Dorsalis Pedis (L) GI/Abdominal exam: Present: soft. Absent: tenderness Extremities exam: Present: other (Right lower leg edema +2, left lower leg edema +1). Absent: calf tenderness Neurological exam: Present: alert Psychiatric exam: Present: normal affect, normal mood Skin exam: Present: normal color Course Vital Signs 10/03/20 10/03/20 09:48 11:52 Temperature 97.8 F Pulse Rate 73 72 Respiratory 16 18 Rate Blood Pressure 146/83 133/88 O2 Sat by Pulse 99 97 Oximetry Medical Decision Making - Medical Decision Making Patient reevaluated. Patient and family updated. - Radiology Data Radiology results: report reviewed (Ultrasound shows right lower leg DVT from popliteal vein to distal femoral, similar to previous) Disposition Clinical Impression: Acute DVT (deep venous thrombosis) Disposition: HOME SELF-CARE Condition: Stable Instructions (If sedation given, give patient instructions): Deep Vein Thrombosis (ED) Additional Instructions: Please follow-up with primary care physician next week as scheduled. [id number] Tylenol if needed. Continue anticoagulation. Return for increased pain, redness, swelling, fever, worsening symptoms or other concerns. Is patient prescribed a controlled substance at d/c from ED?: No Referrals: Aixa Eller MD [Primary Care Provider] - 1-2 days Time of Disposition: 12:30
--- NOTE | 2020-10-03 11:52 | US ---
EXAMINATION TYPE: US venous doppler duplex LE RT DATE OF EXAM: 10/03/2020 11:25 AM COMPARISON: 10/01/2020 CLINICAL HISTORY: pain. Has DVT on blood thinners leg got worse from other day SIDE PERFORMED: Right TECHNIQUE: The lower extremity deep venous system is examined utilizing real time linear array sonog moon with graded compression, doppler sonography and color-flow sonography. VESSELS IMAGED: Common Femoral Vein Deep Femoral Vein Greater Saphenous Vein * Femoral Vein Popliteal Vein Small Saphenous Vein * Proximal Calf Veins (* superficial vessels) Right Leg: Positive DVT Distal Femoral Vein to Popliteal Vein no change since previous exam. IMPRESSION: 1. Right lower extremity deep venous ultrasound positive for deep venous thrombosis extending from th e popliteal vein into the distal femoral vein. Extent appears stable from comparison.
[2020-10-03 11:56] VITALS: BP 133/88; PULSE 72; RESP 18
== END 2020-10-03 12:35 | disposition home or self-care (01) ==
LOC: EC 09:46
DX: I82.431 Acute embolism and thrombosis of right popliteal vein (principal); I82.411 Acute embolism and thrombosis of right femoral vein; G40.909 Epilepsy, unspecified, not intractable, without status epilepticus; Z79.899 Other long term (current) drug therapy
CPT/HCPCS: 99283

== ENCOUNTER 2021-08-31 07:55 | Day surgery (SDC) | payer MEDICARE, OTHER ==
[2021-08-26 13:18] VITALS: BMI 27.8
[~2021-08-31 07:55] MED LIST: LACTATED RINGERS 1,000 ML IV SCH
[2021-08-31] MEDS ORDERED: LACTATED RINGERS 1,000 ML IV ONE (08:14)
[2021-08-31 08:18] VITALS: TEMP 97.8
[2021-08-31] MEDS ORDERED: PROPOFOL 10 MG/ML 20 ML VIAL IV ONE (08:29)
--- NOTE | 2021-08-31 08:33 | P.GSHP ---
History of Present Illness H&P Date: 08/31/21 Chief Complaint: Colon cancer screening Patient here today for colonoscopy. He states he had one previously. He is not aware of those results. No bowel complaints. No family history of colon cancer. Patient has a developmental delay and is not a good historian. 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 YEARS PER CAREGIVER LORI Past Anesthesia/Blood Transfusion Reactions: No Reported Reaction Smoking Status: Never smoker - Past Family History Father Family Medical History: Unable to Obtain Medications and Allergies Home Medications Medication Instructions Recorded Confirmed Type Dicyclomine HCl 20 mg PO QID 11/02/17 08/26/21 History Ergocalciferol (Vitamin D2) 50,000 unit PO SA 11/02/17 08/26/21 History [Vitamin D2] Loperamide [Imodium] 4 mg PO QID 11/02/17 08/26/21 History Loratadine 10 mg PO DAILY 11/02/17 08/26/21 History Phenytoin Sodium Extended 100 mg PO TID 11/02/17 08/26/21 History [Dilantin] Pravastatin Sodium [Pravachol] 20 mg PO HS 11/02/17 08/26/21 History Venlafaxine HCl ER [Effexor XR] 75 mg PO HS 11/02/17 08/26/21 History Apixaban [Eliquis] 5 mg PO BID 10/03/20 08/26/21 History Fluticasone Nasal [place] [Flonase 2 spray EA NOSTRIL DAILY 08/26/21 08/26/21 History Nasal [place]] Allergies Allergy/AdvReac Type Severity Reaction Status Date / Time No Known Allergies Allergy Verified 08/26/21 13:04 Surgical - Exam Vital Signs Temp Pulse Resp BP Pulse Ox 97.8 F 72 18 167/83 97 08/31/21 08:17 08/31/21 08:17 08/31/21 08:17 08/31/21 08:17 08/31/21 08:17 Physical exam: General: Well-developed, well-nourished HEENT: Normocephalic, sclerae nonicteric Abdomen: Nontender, nondistended Extremities: No edema Neuro: Alert and oriented Assessment and Plan (1) Colon cancer screening Narrative/Plan: Will proceed with colonoscopy Current Visit: Yes Status: Acute Code(s): Z12.11 - ENCOUNTER FOR SCREENING FOR MALIGNANT NEOPLASM OF COLON SNOMED Code(s): 413891867
--- NOTE | 2021-08-31 08:42 | P.PCN ---
Date of Procedure: 08/31/21 Procedure(s) Performed: PREOPERATIVE DIAGNOSIS: Colon cancer screening POSTOPERATIVE DIAGNOSIS: Diverticulosis PROCEDURE: Colonoscopy ANESTHESIA: MAC SURGEON: Alberto Flores M.D. SPECIMENS: None ENDOSCOPIC PROCEDURE: The patient was placed on the endoscopy table in the left decubitus position. The Olympus colonoscope was inserted into the anus and passed under direct visualization to the base of the cecum. The appendiceal orifice was visualized. From that point the scope was slowly withdrawn inspe cting all surfaces carefully. There were no neoplastic inflammatory or polypoid lesions throughout the cecum, ascending, transverse, descending, sigmoid and rectum. There was. Mild left-sided diverticulosis noted. Digital rectal examination was normal. The patient was taken to the recovery room in stable condition per anesthesia guidelines. RECOMMENDATIONS: Resume diet. Follow colonoscopy 10 years.
[2021-08-31 08:50] VITALS: RESP 16
[2021-08-31 09:04] VITALS: BP 130/83; PULSE 70
== END 2021-08-31 09:40 | disposition home or self-care (01) ==
LOC: ORWHC2ENDO 07:55
PROVIDERS: ATTEND Surgery
DX: Z12.11 Encounter for screening for malignant neoplasm of colon (principal); K57.30 Diverticulosis of large intestine without perforation or abscess without bleeding; E78.5 Hyperlipidemia, unspecified; G40.909 Epilepsy, unspecified, not intractable, without status epilepticus; Z79.01 Long term (current) use of anticoagulants; Z79.899 Other long term (current) drug therapy; Z86.718 Personal history of other venous thrombosis and embolism
CPT/HCPCS: G0121; J2704

== ENCOUNTER 2022-02-05 13:55 | Emergency (ER) | payer MEDICARE, OTHER ==
[2022-02-05 14:04] VITALS: RESP 18
[2022-02-05] MEDS ORDERED: FUROSEMIDE 10 MG/ML 2 ML VIAL IV ONE (14:24)
--- NOTE | 2022-02-05 14:36 | ED ---
General Adult HPI - General Chief complaint: Extremity Problem,Nontraumatic Stated complaint: Swelling in the ankles Time Seen by Provider: 02/05/22 14:00 Source: patient, RN notes reviewed, old records reviewed Mode of arrival: ambulatory Limitations: no limitations - History of Present Illness Initial comments: This a 66-year-old male who presents emergency Department was under the care of his caregiver. Caregiver brought him in because he is having more swelling bilaterally. 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 Patient has no complaints and caregiver states he doesn't normally complain. Caregiver states that no difficulty breathing or any appearance of shortness of breath. Caregiver states she's been no fever or cough. Patient has not had any vomiting or diarrhea. Caregiver states that the patient is acting normally but the feet are little swollen so he wanted the patient evaluated. - Related Data Home Medications Medication Instructions Recorded Confirmed Dicyclomine HCl 20 mg PO QID 11/02/17 02/05/22 Ergocalciferol (Vitamin D2) 50,000 unit PO SA 11/02/17 02/05/22 [Vitamin D2] Loperamide [Imodium] 4 mg PO QID 11/02/17 02/05/22 Loratadine 10 mg PO DAILY@0800 11/02/17 02/05/22 Phenytoin Sodium Extended 100 mg PO QID 11/02/17 02/05/22 [Dilantin] Pravastatin Sodium [Pravachol] 20 mg PO DAILY@0800 11/02/17 02/05/22 Venlafaxine HCl ER [Effexor XR] 75 mg PO HS@199911/02/17 02/05/22 Apixaban [Eliquis] 5 mg PO BID 10/03/20 02/05/22 Fluticasone Nasal [place] [Flonase 1 - 2 spray EA NOSTRIL DAILY PRN 08/26/21 02/05/22 Nasal [place]] Clotrimazole Cream [Lotrimin Cream] 1 applic TOPICAL DAILY 02/05/22 02/05/22 Levothyroxine Sodium [Synthroid] 25 mcg PO DAILY@0600 02/05/22 02/05/22 Vitamin E 800 unit PO DAILY@0800 02/05/22 02/05/22 Previous Rx's Medication Instructions Recorded Furosemide [Lasix] 20 mg PO DAILY #3 tab 02/05/22 Allergies Allergy/AdvReac Type Severity Reaction Status Date / Time No Known Allergies Allergy Verified 02/05/22 15:31 Review of Systems ROS Statement: Those systems with pertinent positive or pertinent negative responses have been documented in the HPI. ROS Other: All systems not noted in ROS Statement are negative. Past Medical History Past Medical History: Seizure Disorder Additional Past Medical History / Comment(s): developmental delay, cellulitis History of Any Multi-Drug Resistant Organisms: None Reported Past Surgical History: No Surgical Hx Reported Past Anesthesia/Blood Transfusion Reactions: No Reported Reaction Past Psychological History: No Psychological Hx Reported Smoking Status: Never smoker - Past Family History Father Family Medical History: Unable to Obtain General Exam - General Exam Comments Initial Comments: GENERAL: Patient is well-developed and well-nourished. Patient is nontoxic and well- hydrated and is in no acute distress. ENT: Neck is soft and supple. No significant lymphadenopathy is noted. Oropharynx is clear. Moist mucous membranes. Neck has full range of motion without eliciting any pain. EYES: The sclera were anicteric and conjunctiva were pink and moist. Extraocular movements were intact and pupils were equal round and reactive to light. Eyelids were unremarkable. PULMONARY: Unlabored respirations. Good breath sounds bilaterally. No audible rales rhonchi or wheezing was noted. CARDIOVASCULAR: There is a regular rate and rhythm without any murmurs gallops or rubs. ABDOMEN: Soft and nontender with normal bowel sounds. SKIN: Skin is clear with no lesions or rashes and otherwise unremarkable. NEUROLOGIC: Patient is alert and oriented x3. Cranial nerves II through XII are grossly intact. Motor and sensory are also intact. Normal speech, volume and content. Symmetrical smile. MUSCULOSKELETAL: Normal extremities with adequate strength and full range of motion. 1+ edema bilaterally LYMPHATICS: No significant lymphadenopathy is noted PSYCHIATRIC: Normal psychiatric evaluation. Limitations: no limitations Course Vital Signs 02/05/22 14:00 Temperature 97.6 F Pulse Rate 52 L Respiratory 18 Rate Blood Pressure 154/74 O2 Sat by Pulse 97 Oximetry Medical Decision Making - Medical Decision Making EKG shows sinus rhythm versus occasional PVC at [address] interval is 158 QRSs 114 QT interval 423 QTC is 452. Patient's EKG shows no ST segment elevation or depression. Chest x-ray showed no acute abnormalities. Patient was given 20 lasix and had good results. - Lab Data Result diagrams: 02/05/22 14:31 02/05/22 14:31 Lab Results 02/05/22 02/05/22 02/05/22 Range/Units 14:31 14:31 14:31 WBC 4.8 (3.8-10.6) k/uL RBC 4.66 (4.30-5.90) m/uL Hgb 13.3 (13.0-17.5) gm/dL Hct 42.1 (39.0-53.0) % MCV 90.3 (80.0-100.0) fL MCH 28.6 (25.0-35.0) pg MCHC 31.7 (31.0-37.0) g/dL RDW 13.4 (11.5-15.5) % Plt Count 211 (150-450) k/uL MPV 9.3 Neutrophils % 50 % Lymphocytes % 36 % Monocytes % 7 % Eosinophils % 4 % Basophils % 1 % Neutrophils # 2.4 (1.3-7.7) k/uL Lymphocytes # 1.7 (1.0-4.8) k/uL Monocytes # 0.3 (0-1.0) k/uL Eosinophils # 0.2 (0-0.7) k/uL Basophils # 0.1 (0-0.2) k/uL Sodium 138 (137-145) mmol/L Potassium 4.1 (3.5-5.1) mmol/L Chloride 103 (98-107) mmol/L Carbon Dioxide 28 (22-30) mmol/L Anion Gap 7 mmol/L BUN 20 (9-20) mg/dL Creatinine 0.71 (0.66-1.25) mg/dL Est GFR (CKD-EPI)AfAm >90 (>60 ml/min/1.73 sqM) Est GFR (CKD-EPI)NonAf >90 (>60 ml/min/1.73 sqM) Glucose 109 H (74-99) mg/dL Calcium 9.0 (8.4-10.2) mg/dL Total Bilirubin 0.4 (0.2-1.3) mg/dL AST 27 (17-59) U/L ALT 24 (4-49) U/L Alkaline Phosphatase 64 (38-126) U/L NT-Pro-B Natriuret Pep 709 pg/mL Total Protein 7.9 (6.3-8.2) g/dL Albumin 4.2 (3.5-5.0) g/dL Phenytoin 8.3 ug/mL Disposition Clinical Impression: Pedal edema Disposition: HOME SELF-CARE Condition: Good Instructions (If sedation given, give patient instructions): Leg Edema (ED) Additional Instructions: Patient should keep his legs elevated when he can patient should wear Robe hose. Patient should eat a low-sodium diet. Patient can take the Lasix for the next 3 days and follow-up with his primary medical care doctor. Prescriptions: Furosemide [Lasix] 20 mg PO DAILY #3 tab Is patient prescribed a controlled substance at d/c from ED?: No Referrals: Aixa Eller MD [Primary Care Provider] - 1-2 days Time of Disposition: 15:45
[2022-02-05 14:52] LABS: Basophils # (A) 0.1 k/uL (0-0.2); Basophils % (A) 1 %; Eosinophils # (A) 0.2 k/uL (0-0.7); Eosinophils % (A) 4 %; HCT 42.1 % (39.0-53.0); HGB 13.3 gm/dL (13.0-17.5); Lymphocytes # (A) 1.7 k/uL (1.0-4.8); Lymphocytes % (A) 36 %; MCH 28.6 pg (25.0-35.0); MCHC 31.7 g/dL (31.0-37.0); MCV 90.3 fL (80.0-100.0); Mean Platelet Volume 9.3; Monocytes # (A) 0.3 k/uL (0-1.0); Monocytes % (A) 7 %; Neutrophils # (A) 2.4 k/uL (1.3-7.7); Neutrophils % (A) 50 %; Platelet Count 211 k/uL (150-450); RBC 4.66 m/uL (4.30-5.90); RDW 13.4 % (11.5-15.5); WBC 4.8 k/uL (3.8-10.6)
[2022-02-05 15:05] LABS: ALT 24 U/L (4-49); AST 27 U/L (17-59); African American GFR (CKD) >90 (>60 ml/min/1.73 sqM); Albumin 4.2 g/dL (3.5-5.0); Alkaline Phosphatase 64 U/L (38-126); Anion Gap 7 mmol/L; Blood Urea Nitrogen 20 mg/dL (9-20); Carbon Dioxide 28 mmol/L (22-30); Chloride 103 mmol/L (98-107); Glucose 109 mg/dL (74-99); Non-African American GFR(CKD) >90 (>60 ml/min/1.73 sqM); Phenytoin (Dilantin) 8.3 ug/mL; Potassium 4.1 mmol/L (3.5-5.1); Sodium 138 mmol/L (137-145); Total Bilirubin 0.4 mg/dL (0.2-1.3); Total Protein 7.9 g/dL (6.3-8.2)
--- NOTE | 2022-02-05 15:10 | XR ---
EXAMINATION TYPE: XR chest 2V DATE OF EXAM: 02/05/2022 COMPARISON: July 24, 2011 HISTORY: Short of breath TECHNIQUE: 3 views FINDINGS: There is no heart failure nor confluent pneumonic infiltrate. Costophrenic angles are clear . There are no hilar masses. There are chest leads. There is slight increased interstitial markings i n the lower lung cal[place]. IMPRESSION: No definite acute lung disease. There is improved appearance of the interstitial density in the lower lung [place] compared to old exam.
[2022-02-05] MEDS ORDERED: PHENYTOIN SODIUM INJ 500 MG in SODIUM CHLORIDE 0.9% 50 ML IVPB STA (15:25)
[2022-02-05] MEDS ORDERED: FUROSEMIDE 20 MG TAB PO STA (16:22)
[2022-02-05 17:08] VITALS: BP 149/72; PULSE 55; TEMP 97.8
== END 2022-02-05 16:50 | disposition home or self-care (01) ==
LOC: EC 13:55
DX: R60.0 Localized edema (principal); G40.909 Epilepsy, unspecified, not intractable, without status epilepticus; Z86.718 Personal history of other venous thrombosis and embolism; Z79.899 Other long term (current) drug therapy; Z79.01 Long term (current) use of anticoagulants
CPT/HCPCS: 36415; 93005; 83880; 80185; 80053; 85025; 71046; 99284; 96365; 96375; J1165; J1940

== ENCOUNTER 2022-07-02 10:23 | Emergency (ER) | payer MEDICARE, OTHER ==
[2022-07-02 10:37] VITALS: RESP 20; TEMP 98
--- NOTE | 2022-07-02 11:26 | XR ---
EXAMINATION TYPE: XR chest 2V DATE OF EXAM: 07/02/2022 10:52 AM COMPARISON: Chest radiographs from 02/05/2022 TECHNIQUE: XR chest 2V Frontal and lateral views of the chest. CLINICAL INDICATION:Male, 66 years old with history of Cough; FINDINGS: Lungs/Pleura: Bibasilar airspace opacities There is no evidence of pleural effusion, focal consolidat ion, or pneumothorax. Pulmonary vascularity: Unremarkable. Heart/mediastinum: Cardiomediastinal silhouette is unremarkable. Musculoskeletal: No acute osseous pathology. IMPRESSION: Bibasilar airspace opacities correlate for pneumonia.
[2022-07-02] MEDS ORDERED: cefTRIAXone 1,000 MG VIAL (IM USE) IM STA (12:17)
--- NOTE | 2022-07-02 12:18 | ED ---
URI HPI - General Chief Complaint: Upper Respiratory Infection Stated Complaint: congestion,fatigue Time Seen by Provider: 07/02/22 11:09 Source: family, RN notes reviewed Mode of arrival: ambulatory Limitations: altered mental status - History of Present Illness Initial Comments: 66-year-old male presents emergency Department chief complaint of a cough. Patient has been sick for last week. Patient initially thought that he had COVID-19 as family member was tested positive. Patient says negative twice. Patient continues to have well cough no shortness breath or chest pain no vomiting no other associated complaints. - Related Data Home Medications Medication Instructions Recorded Confirmed Dicyclomine HCl 20 mg PO QID 11/02/17 02/05/22 Ergocalciferol (Vitamin D2) 50,000 unit PO SA 11/02/17 02/05/22 [Vitamin D2] Loperamide [Imodium] 4 mg PO QID 11/02/17 02/05/22 Loratadine 10 mg PO DAILY@0800 11/02/17 02/05/22 Phenytoin Sodium Extended 100 mg PO QID 11/02/17 02/05/22 [Dilantin] Pravastatin Sodium [Pravachol] 20 mg PO DAILY@0800 11/02/17 02/05/22 Venlafaxine HCl ER [Effexor XR] 75 mg PO HS@199911/02/17 02/05/22 Apixaban [Eliquis] 5 mg PO BID 10/03/20 02/05/22 Fluticasone Nasal [place] [Flonase 1 - 2 spray EA NOSTRIL DAILY PRN 08/26/21 02/05/22 Nasal [place]] Clotrimazole Cream [Lotrimin Cream] 1 applic TOPICAL DAILY 02/05/22 02/05/22 Levothyroxine Sodium [Synthroid] 25 mcg PO DAILY@0600 02/05/22 02/05/22 Vitamin E 800 unit PO DAILY@0800 02/05/22 02/05/22 Previous Rx's Medication Instructions Recorded Furosemide [Lasix] 20 mg PO DAILY #3 tab 02/05/22 Azithromycin [Zithromax Z Pack] 0 tab PO DIRECTED #6 tab 07/02/22 Allergies Allergy/AdvReac Type Severity Reaction Status Date / Time No Known Allergies Allergy Verified 07/02/22 10:37 Review of Systems ROS Statement: Those systems with pertinent positive or pertinent negative responses have been documented in the HPI. ROS Other: All systems not noted in ROS Statement are negative. Past Medical History Past Medical History: Seizure Disorder Additional Past Medical History / Comment(s): developmental delay, cellulitis History of Any Multi-Drug Resistant Organisms: None Reported Past Surgical History: No Surgical Hx Reported Past Anesthesia/Blood Transfusion Reactions: No Reported Reaction Past Psychological History: No Psychological Hx Reported Smoking Status: Never smoker Past Alcohol Use History: None Reported Past Drug Use History: None Reported - Past Family History Father Family Medical History: Unable to Obtain General Exam Limitations: altered mental status General appearance: alert, in no apparent distress Head exam: Present: atraumatic, normocephalic, normal inspection Eye exam: Present: normal appearance, PERRL, EOMI. Absent: scleral icterus, conjunctival injection, periorbital swelling ENT exam: Present: normal exam, normal oropharynx, mucous membranes moist Neck exam: Present: normal inspection, full ROM. Absent: tenderness, meningismus, lymphadenopathy Respiratory exam: Present: normal lung sounds bilaterally. Absent: respiratory distress, wheezes, rales, rhonchi, stridor Cardiovascular Exam: Present: regular rate, normal rhythm, normal heart sounds. Absent: systolic murmur, diastolic murmur, rubs, gallop, clicks Course Vital Signs 07/02/22 10:35 Temperature 98 F Pulse Rate 93 Respiratory 20 Rate Blood Pressure 121/77 O2 Sat by Pulse 96 Oximetry Medical Decision Making - Medical Decision Making Patient x-ray shows possibility of pneumonia patient was given Rocephin, discharged on azithromycin patient family agreed that patient could go home and return for any worsening change in symptoms. - Lab Data Lab Results 07/02/22 Range/Units 10:38 Coronavirus (PCR) Not Detected (Not Detectd) Disposition Clinical Impression: Pneumonia Disposition: HOME SELF-CARE Condition: Stable Instructions (If sedation given, give patient instructions): Pneumonia (ED) Additional Instructions: Please return to the Emergency Department if symptoms worsen or any other concerns. Prescriptions: Azithromycin [Zithromax Z Pack] 0 tab PO DIRECTED #6 tab Is patient prescribed a controlled substance at d/c from ED?: No Referrals: Aixa Eller MD [Primary Care Provider] - 1-2 days Time of Disposition: 12:18
[2022-07-02 12:41] VITALS: BP 124/79; PULSE 88
== END 2022-07-02 12:40 | disposition home or self-care (01) ==
LOC: EC 10:23
DX: J18.9 Pneumonia, unspecified organism (principal); Z20.822 Contact with and (suspected) exposure to COVID-19
CPT/HCPCS: 96372; 99283; 87635; 71046; J0696

== ENCOUNTER → 2022-08-29 | Outpatient (CLI) | payer MEDICARE, OTHER ==
--- NOTE | 2022-08-29 16:18 | MR ---
EXAMINATION TYPE: MR brain wo con DATE OF EXAM: 08/29/2022 COMPARISON: CT brain July 24, 2011 HISTORY: Seizures, memory loss. TECHNIQUE: Multiplanar, multisequence imaging of the brain and brainstem is performed without IV cont rast. FINDINGS: Diffusion weighted images demonstrate no evidence of a recent infarct or other diffusion abnormality. There is mild ventricular and sulcal prominence. There are multifocal and confluent areas of T2 hyper intensity seen throughout the superficial, deep, periventricular white matter. Lesions are nonspecifi c in appearance and distribution. Findings are prominent or progressed from 2011 CT. T2 star-weighted images show punctate areas of blood products throughout the periphery posterior brain parenchyma gre atest involving bilateral parietal lobes and extending into the left temporal lobe. The hippocampal g yri appear symmetric and felt within normal limits. Midline structures demonstrate normal morphology. The craniocervical junction appears within normal limits. Normal vascular flow voids are present. The visualized sinuses are clear and the globes are i ntact. Increased fluid signal right greater than left bilateral mastoid air cells is present. IMPRESSION: 1. Mild diffuse cerebral atrophy with moderate to advanced nonspecific white matter changes showing i nterval significant progression from 2011 CT. Clinical correlation and follow-up advised. 2. New increased fluid signal bilateral mastoid air cells raises concern for bilateral mastoiditis, c orrelate clinically. 3. Scattered chronic intraparenchymal blood products greatest involving bilateral parietal lobes and left temporal lobe could reflect product of remote trauma and/or REJI. Other etiologies not excluded. Clinical correlation and follow-up advised.
== END | disposition home or self-care (01) ==
LOC: RADMRIMAIN 14:02
PROVIDERS: ATTEND Psychiatry & Neurology Neurology
DX: G31.9 Degenerative disease of nervous system, unspecified (principal)
CPT/HCPCS: 70551

== ENCOUNTER → 2023-01-30 | Outpatient (CLI) | payer MEDICARE, OTHER ==
--- NOTE | 2023-01-30 21:01 | MR ---
EXAMINATION TYPE: MR brain wo con DATE OF EXAM: 01/30/2023 12:04 PM COMPARISON: 08/29/2022 [place] on PACS. Severe HISTORY: Prior on synapse, 6 month follow up for memory loss FINDINGS: The ventricles, basal cisterns and sulci overlying the cerebral convexities are mildly enlarged. There is evidence of moderate periventricular white matter ischemic demyelination. Remote deep white matter insults are also noted. No acute edema is seen on diffusion weighted imaging. There is no evidence for midline shift or mass effect. Acute intracranial hemorrhage or extra-axial collection is not evident. Again noted on T2 star imag ing there are multiple small foci of decreased signal felt to reflect remote hemorrhage and hemosider in deposition. Coronal and The paranasal sinuses and mastoid air cells are well-aerated. IMPRESSION: Age-related atrophic and chronic small vessel ischemic change. Stable white matter changes which are nonspecific. Evidence of remote hemosiderin deposition. No acute intracranial process at this time.
== END | disposition home or self-care (01) ==
LOC: RADMRIMAIN 10:36
PROVIDERS: ATTEND Psychiatry & Neurology Neurology
DX: G31.1 Senile degeneration of brain, not elsewhere classified (principal); G40.802 Other epilepsy, not intractable, without status epilepticus; I67.82 Cerebral ischemia; R90.82 White matter disease, unspecified
CPT/HCPCS: 70551

== ENCOUNTER 2023-09-12 10:41 | Emergency (ER) | payer MEDICARE, OTHER ==
[2023-09-12 11:24] VITALS: BP 128/77
--- NOTE | 2023-09-12 12:27 | ED ---
Lower Extremity Injury HPI - General Chief Complaint: Extremity Injury, Lower Stated Complaint: Lt side Hip pain Time Seen by Provider: 09/12/23 11:47 Source: patient, RN notes reviewed Mode of arrival: ambulatory Limitations: no limitations - History of Present Illness Initial Comments: 67-year-old male presents emergency Department with chief complaint of bruising of the left hip. Patient reportedly had a fall. Patient had no head injury no loss conscious. Patient is a Eliquis. Caregiver states he is at his normal baseline. He has been favoring his left hip - Related Data Home Medications Medication Instructions Recorded Confirmed Dicyclomine HCl 20 mg PO QID 11/02/17 02/05/22 Ergocalciferol (Vitamin D2) 50,000 unit PO SA 11/02/17 02/05/22 [Vitamin D2] Loperamide [Imodium] 4 mg PO QID 11/02/17 02/05/22 Loratadine 10 mg PO DAILY@0800 11/02/17 02/05/22 Phenytoin Sodium Extended 100 mg PO QID 11/02/17 02/05/22 [Dilantin] Pravastatin Sodium [Pravachol] 20 mg PO DAILY@0800 11/02/17 02/05/22 Venlafaxine HCl ER [Effexor XR] 75 mg PO HS@199911/02/17 02/05/22 Apixaban [Eliquis] 5 mg PO BID 10/03/20 02/05/22 Fluticasone Nasal [place] [Flonase 1 - 2 spray EA NOSTRIL DAILY PRN 08/26/21 02/05/22 Nasal [place]] Clotrimazole Cream [Lotrimin Cream] 1 applic TOPICAL DAILY 02/05/22 02/05/22 Levothyroxine Sodium [Synthroid] 25 mcg PO DAILY@0600 02/05/22 02/05/22 Vitamin E 800 unit PO DAILY@0800 02/05/22 02/05/22 Previous Rx's Medication Instructions Recorded Furosemide [Lasix] 20 mg PO DAILY #3 tab 02/05/22 Azithromycin [Zithromax Z Pack] 0 tab PO DIRECTED #6 tab 07/02/22 Allergies Allergy/AdvReac Type Severity Reaction Status Date / Time No Known Allergies Allergy Verified 09/12/23 10:59 Review of Systems ROS Statement: Those systems with pertinent positive or pertinent negative responses have been documented in the HPI. ROS Other: All systems not noted in ROS Statement are negative. Past Medical History Past Medical History: Seizure Disorder Additional Past Medical History / Comment(s): developmental delay, cellulitis History of Any Multi-Drug Resistant Organisms: None Reported Past Surgical History: No Surgical Hx Reported Past Anesthesia/Blood Transfusion Reactions: No Reported Reaction Past Psychological History: No Psychological Hx Reported Smoking Status: Never smoker Past Alcohol Use History: None Reported Past Drug Use History: None Reported - Past Family History Father Family Medical History: Unable to Obtain General Exam Limitations: no limitations General appearance: alert, in no apparent distress Head exam: Present: atraumatic, normocephalic, normal inspection Eye exam: Present: normal appearance, PERRL, EOMI. Absent: scleral icterus, conjunctival injection, periorbital swelling ENT exam: Present: normal exam, normal oropharynx, mucous membranes moist Neck exam: Present: normal inspection, full ROM. Absent: tenderness, mening ismus, lymphadenopathy Respiratory exam: Present: normal lung sounds bilaterally. Absent: respiratory distress, wheezes, rales, rhonchi, stridor Cardiovascular Exam: Present: regular rate, normal rhythm, normal heart sounds. Absent: systolic murmur, diastolic murmur, rubs, gallop, clicks Extremities exam: Present: other (Mild tenderness left hip, full range of motion neurovascular intact) Back exam: Present: full ROM. Absent: tenderness Neurological exam: Present: alert, reflexes normal. Absent: motor sensory deficit Skin exam: Present: warm, dry, intact, normal color. Absent: rash Course Vital Signs 09/12/23 09/12/23 10:59 12:01 Temperature 98.6 F 97.7 F Pulse Rate 46 L 65 Respiratory 16 18 Rate Blood Pressure 128/77 O2 Sat by Pulse 99 96 Oximetry Medical Decision Making - Medical Decision Making Was pt. sent in by a medical professional or institution (, PA, HAT BAND ATTACHER, urgent care, hospital, or fci...) When possible be specific @ -No Did you speak to anyone other than the patient for history (EMS, parent, family, police, friend...)? What history was obtained from this source @ -No Did you review nursing and triage notes (agree or disagree)? Why? @ -I reviewed and agree with nursing and triage notes Were old charts reviewed (outside hosp., previous admission, EMS record, old EKG, old radiological studies, urgent care reports/EKG's, fci records)? Report findings @ -No old charts were reviewed Differential Diagnosis (chest pain, altered mental status, abdominal pain women, abdominal pain men, vaginal bleeding, weakness, fever, dyspnea, syncope, headache, dizziness, GI bleed, back pain, seizure, CVA, palpatations, mental health, musculoskeletal)? @ -Hip contusion, hip fracture applicable EKG interpreted by me (3pts min.). @ -[None X-rays interpreted by me (1pt min.). @ -X-ray left hip, pelvis no acute fracture dislocation CT interpreted by me (1pt min.). @ -None done U/S interpreted by me (1pt. min.). @ -None done What testing was considered but not performed or refused? (CT, X-rays, U/S, labs)? Why? @ -None What meds were considered but not given or refused? Why? @ -None Did you discuss the management of the patient with other professionals (professionals i.e. , PA, HAT BAND ATTACHER, lab, RT, psych nurse, social science manager, geothermal hvac technician, teacher, command center officer, bilingual case manager)? Give summary @ -No Was smoking cessation discussed for >3mins.? @ -No Was critical care preformed (if so, how long)? @ -No Were there social determinants of health that impacted care today? How? (Homelessness, low income, unemployed, alcoholism, drug addiction, transpor tation, low edu. Level, literacy, decrease access to med. care, half-way, rehab)? @ -No Was there de-escalation of care discussed even if they declined (Discuss DNR or withdrawal of care, Hospice)? DNR status @ -No What co-morbidities impacted this encounter? (DM, HTN, Smoking, COPD, CAD, Cancer, CVA, ARF, Chemo, Hep., AIDS, mental health diagnosis, sleep apnea, morbid obesity)? @ -None Was patient admitted / discharged? Hospital course, mention meds given and route, prescriptions, significant lab abnormalities, going to OR and other pertinent info. @ -Discharge patient x-rays negative for acute fracture patient is left-hand contusion. Undiagnosed new problem with uncertain prognosis? @ -No Drug Therapy requiring intensive monitoring for toxicity (Heparin, Nitro, Insulin, Cardizem)? @ -No Were any procedures done? @ -No Diagnosis/symptom? @ -Left hip contusion Acute, or Chronic, or Acute on Chronic? @ -Acute Uncomplicated (without systemic symptoms) or Complicated (systemic symptoms)? @ -Uncomplicated Side effects of treatment? @ -No Exacerbation, Progression, or Severe Exacerbation? @ -No Poses a threat to life or bodily function? How? (Chest pain, [place], [place], pneumonia, PE, COPD, DKA, ARF, appy, cholecystitis, CVA, Diverticulitis, Homicidal, Suicidal, threat to staff... and all critical care pts) @ -No Disposition Clinical Impression: Contusion of left hip Disposition: HOME SELF-CARE Condition: Stable Instructions (If sedation given, give patient instructions): Hip Contusion (ED) Additional Instructions: Please return to the Emergency Department if symptoms worsen or any other concerns. Is patient prescribed a controlled substance at d/c from ED?: No Referrals: Aixa Eller MD [Primary Care Provider] - 1-2 days Time of Disposition: 13:25
--- NOTE | 2023-09-12 12:47 | XR ---
EXAMINATION TYPE: XR Hip LT and AP Pelvis DATE OF EXAM: 09/12/2023 12:32 PM CLINICAL INDICATION:Male, 67 years old with history of pain; [facility] COMPARISON: None. TECHNIQUE: XR Hip LT and AP Pelvis; hip was examined in the frontal and lateral projections and a AP pelvis. FINDINGS: No evidence for acute process, joint dislocation or significant soft tissue swelling. Osteo phyte formation of the superior acetabulum of the hip. IMPRESSION: 1. No evidence for acute process. 2. Mild hip osteoarthrosis.
[2023-09-12 12:50] VITALS: PULSE 65; RESP 18; TEMP 97.7
== END 2023-09-12 13:40 | disposition home or self-care (01) ==
LOC: EC 10:41
DX: S70.02XA Contusion of left hip, initial encounter (principal); W19.XXXA Unspecified fall, initial encounter
CPT/HCPCS: 73502; 99283

== ENCOUNTER 2023-12-18 02:29 | Emergency (ER) | payer MEDICARE, OTHER ==
[2023-12-18 02:56] VITALS: RESP 18; TEMP 101.4
--- NOTE | 2023-12-18 03:43 | ED ---
General Adult HPI - General Chief complaint: Upper Respiratory Infection Stated complaint: Difficulty Breathing, Congestion Time Seen by Provider: 12/18/23 02:43 Source: patient, family, RN notes reviewed, old records reviewed Mode of arrival: ambulatory Limitations: no limitations - History of Present Illness Initial comments: 68-year-old male presenting for evaluation of cough, chest congestion. Symptoms have been present for the past 2 days. Patient is febrile upon arrival. No known sick contacts. No vomiting. No chest pain. No lower extremity pain or swelling. Patient does report increased fatigue. History is obtained from the patient's friend and advocate. - Related Data Home Medications Medication Instructions Recorded Confirmed Dicyclomine HCl 20 mg PO QID 11/02/17 02/05/22 Ergocalciferol (Vitamin D2) 50,000 unit PO SA 11/02/17 02/05/22 [Vitamin D2] Loperamide [Imodium] 4 mg PO QID 11/02/17 02/05/22 Loratadine 10 mg PO DAILY@0800 11/02/17 02/05/22 Phenytoin Sodium Extended 100 mg PO QID 11/02/17 02/05/22 [Dilantin] Pravastatin Sodium [Pravachol] 20 mg PO DAILY@0811/02/17 02/05/22 Venlafaxine HCl ER [Effexor XR] 75 mg PO HS@199911/02/17 02/05/22 Apixaban [Eliquis] 5 mg PO BID 10/03/20 02/05/22 Fluticasone Nasal [place] [Flonase 1 - 2 spray EA NOSTRIL DAILY PRN 08/26/21 02/05/22 Nasal [place]] Clotrimazole Cream [Lotrimin Cream] 1 applic TOPICAL DAILY 02/05/22 02/05/22 Levothyroxine Sodium [Synthroid] 25 mcg PO DAILY@0602/05/22 02/05/22 Vitamin E 800 unit PO DAILY@0802/05/22 02/05/22 Previous Rx's Medication Instructions Recorded Furosemide [Lasix] 20 mg PO DAILY #3 tab 02/05/22 Azithromycin [Zithromax Z Pack] 0 tab PO DIRECTED #6 tab 07/02/22 Oseltamivir [Tamiflu] 75 mg PO Q12HR #10 cap 12/18/23 Allergies Allergy/AdvReac Type Severity Reaction Status Date / Time No Known Allergies Allergy Verified 12/18/23 02:38 Review of Systems ROS Statement: Those systems with pertinent positive or pertinent negative responses have been documented in the HPI. ROS Other: All systems not noted in ROS Statement are negative. Past Medical History Past Medical History: Seizure Disorder Additional Past Medical History / Comment(s): developmental delay, cellulitis History of Any Multi-Drug Resistant Organisms: None Reported Past Surgical History: No Surgical Hx Reported Past Anesthesia/Blood Transfusion Reactions: No Reported Reaction Past Psychological History: No Psychological Hx Reported Smoking Status: Never smoker Past Alcohol Use History: None Reported Past Drug Use History: None Reported - Past Family History Father Family Medical History: Unable to Obtain General Exam Limitations: no limitations General appearance: alert, in no apparent distress Head exam: Present: atraumatic, normocephalic Eye exam: Present: normal appearance, PERRL ENT exam: Present: mucous membranes dry Respiratory exam: Present: rhonchi. Absent: respiratory distress Cardiovascular Exam: Present: regular rate, normal rhythm GI/Abdominal exam: Present: soft. Absent: distended, tenderness, guarding Extremities exam: Present: normal inspection, normal capillary refill. Absent: pedal edema Neurological exam: Present: alert Psychiatric exam: Present: normal affect, normal mood Skin exam: Present: warm, dry, intact. Absent: cyanosis, diaphoretic Course Vital Signs 12/18/23 02:35 Temperature 101.4 F H Pulse Rate 88 Respiratory 18 Rate Blood Pressure 135/67 O2 Sat by Pulse 96 Oximetry Medical Decision Making - Medical Decision Making Was pt. sent in by a medical professional or institution (, PA, AREA MANAGER, urgent care, hospital, or longterm...) When possible be specific @ -No Did you speak to anyone other than the patient for history (EMS, parent, family, police, friend...)? What history was obtained from this source @ -No Did you review nursing and triage notes (agree or disagree)? Why? @ -I reviewed and agree with nursing and triage notes Were old charts reviewed (outside hosp., previous admission, EMS record, old EKG, old radiological studies, urgent care reports/EKG's, longterm records)? Report findings @ -No old charts were reviewed Differential Diagnosis (chest pain, altered mental status, abdominal pain women, abdominal pain men, vaginal bleeding, weakness, fever, dyspnea, syncope, headache, dizziness, GI bleed, back pain, seizure, CVA, palpatations, mental health, musculoskeletal)? @ -[Upper respiratory infection, influenza, pneumonia EKG interpreted by me (3pts min.). @ -As above X-rays interpreted by me (1pt min.). @ -Chest x-ray showing chronic changes without lobar pneumonia, no pneumothorax, no acute findings. CT interpreted by me (1pt min.). @ -None done U/S interpreted by me (1pt. min.). @ -None done What testing was considered but not performed or refused? (CT, X-rays, U/S, labs)? Why? @ -None What meds were considered but not given or refused? Why? @ -None Did you discuss the management of the patient with other professionals (professionals i.e. , PA, AREA MANAGER, lab, RT, psych nurse, psych social worker, patient registration supervisor, teacher, environmental protection officer, special education case manager)? Give summary @ -No Was smoking cessation discussed for >3mins.? @ -No Was critical care preformed (if so, how long)? @ -No Were there social determinants of health that impacted care today? How? (Homelessness, low income, unemployed, alcoholism, drug addiction, transportation, low edu. Level, literacy, decrease access to med. care, care home, rehab)? @ -No Was there de-escalation of care discussed even if they declined (Discuss DNR or withdrawal of care, Hospice)? DNR status @ -No What co-morbidities impacted this encounter? (DM, HTN, Smoking, COPD, CAD, Cancer, CVA, ARF, Chemo, Hep., AIDS, mental health diagnosis, sleep apnea, morbid obesity)? @ -None Was patient admitted / discharged? Hospital course, mention meds given and route, prescriptions, significant lab abnormalities, going to OR and other pertinent info. @ -68-year-old male with 2 days of cough, congestion, fever. Patient does test positive for influenza A. Vital signs are stable. No respiratory distress. Patient is stable for discharge with return parameters discussed. Undiagnosed new problem with uncertain prognosis? @ -No Drug Therapy requiring intensive monitoring for toxicity (Heparin, Nitro, Insulin, Cardizem)? @ -No Were any procedures done? @ -No Diagnosis/symptom? @Influenza Acute, or Chronic, or Acute on Chronic? @Acute Uncomplicated (without systemic symptoms) or Complicated (systemic symptoms)? @ -Default Side effects of treatment? @ -No Exacerbation, Progression, or Severe Exacerbation? @ -No Poses a threat to life or bodily function? How? (Chest pain, [place], MD, pneumonia, PE, COPD, DKA, ARF, appy, cholecystitis, CVA, Diverticulitis, Homicidal, Suicidal, threat to staff... and all critical care pts) @ -[Low risk at this time - Lab Data Lab Results 12/18/23 Range/Units 02:42 Influenza Type A (PCR) Detected A (Not Detectd) Influenza Type B (PCR) Not Detected (Not Detectd) RSV (PCR) Not Detected (Not Detectd) SARS-CoV-2 (PCR) Not Detected (Not Detectd) Disposition Clinical Impression: Influenza Disposition: HOME SELF-CARE Condition: Fair Instructions (If sedation given, give patient instructions): Influenza (ED) Prescriptions: Oseltamivir [Tamiflu] 75 mg PO Q12HR #10 cap Is patient prescribed a controlled substance at d/c from ED?: No Referrals: Aixa Eller MD [Primary Care Provider] - 1-2 days Time of Disposition: 04:56
[2023-12-18] MEDS: ACETAMINOPHEN TAB 500 MG TAB PO STA (04:18)
[2023-12-18] MEDS: OSELTAMIVIR 75 MG CAP PO STA (04:18)
--- NOTE | 2023-12-18 04:54 | XR ---
EXAMINATION TYPE: XR chest 2V DATE OF EXAM: 12/18/2023 COMPARISON: Chest x-ray July 02, 2022 HISTORY: Cough TECHNIQUE: Frontal and lateral views of the chest are obtained. FINDINGS: There is some chronic parenchymal change without suspicious focal air space opacity, pleur al effusion, or pneumothorax seen. Cardiomegaly is present. The osseous structures are intact. IMPRESSION: Chronic changes and cardiomegaly without acute pulmonary infiltrate.
[2023-12-18 05:50] VITALS: BP 139/83; PULSE 84
== END 2023-12-18 05:27 | disposition home or self-care (01) ==
LOC: EC 02:29
DX: J10.1 Influenza due to other identified influenza virus with other respiratory manifestations (principal); I51.7 Cardiomegaly; Z20.822 Contact with and (suspected) exposure to COVID-19
CPT/HCPCS: 71046; 87636; 99285

== ENCOUNTER → 2024-09-24 | Outpatient (CLI) | payer MEDICARE, OTHER | END | disposition home or self-care (01) | LOC: EEVIPCON 10:05 → RADMRIMAIN 10:05 | PROVIDERS: ATTEND Psychiatry & Neurology Neurology | DX: Z53.9 Procedure and treatment not carried out, unspecified reason (principal) ==